=== PATIENT | male | born 1955 | race African-American/Black ===

== ENCOUNTER 2016-12-25 02:17 | Emergency (ER) | payer MEDICAID ==
[~2016-12-25] VITALS: Ht 167.6 cm; Wt 63.5 kg
[2016-12-25] MEDS ORDERED: NKM (02:27)
[2016-12-25 02:30] VITALS: BP 143/81
--- NOTE | 2016-12-25 02:42 | Emergency Room Report ---
History of Present Illness General Chief Complaint: Pain Source: Patient Present Illness [facility] This is a 61-year-old male with a history hypertension. Has not take any medication for it though. He presents with chief complaint of right leg pain. Onset for 2 days. Pain going from his back down his leg. Denies any fever chills denies any nausea vomiting. He does have increasing edema to his lower extremity. Nothing made it better nothing made it worse. No other complaint Allergies: Coded Allergies: No Known Allergies (Unverified , 12/25/16) Patient History Past Medical History: see triage record, old chart reviewed, HTN Past Surgical History: other Pertinent Family History: none Social History: Reports: smoking Immunizations: other Reviewed Nursing Documentation: PMH: Agreed, PSxH: Agreed Nursing Documentation-PMH Hx Hypertension: Yes Review of Systems Eye: Denies: blurred vision, eye pain ENT: Denies: ear pain, nose congestion, throat swelling Respiratory: Denies: cough, shortness of breath Cardiovascular: Denies: chest pain, palpitations Gastrointestinal: Denies: abdominal pain, diarrhea, nausea, vomiting Musculoskeletal: Denies: back pain, joint pain Skin: Denies: rash Neurological: Denies: headache, numbness Endocrine: Denies: increased thirst, increased urine Hematologic/Lymphatic: Denies: easy bruising All Other Systems: negative except mentioned in HPI Physical Exam Vital Signs Date Time Temp Pulse Resp B/P Pulse Ox O2 Delivery O2 Flow Rate FiO2 12/25/16 02:20 98.2 99 18 148/80 96 Room Air vitals unremarkable Sp02 EP Interpretation: reviewed, normal General Appearance: well appearing, no apparent distress, alert Head: normocephalic, atraumatic Eyes: bilateral eye EOMI, bilateral eye PERRL ENT: hearing grossly normal, normal pharynx Neck: full range of motion, supple, no meningismus Respiratory: chest non-tender, lungs clear, normal breath sounds Cardiovascular #1: regular rate, rhythm, no murmur Gastrointestinal: normal bowel sounds, non tender, no mass, no organomegaly, no bruit, non-distended, other - ventral hernia. reducible. Musculoskeletal: gait/station normal, normal range of motion, swelling - 2+ pitting edema bilaterally, other - Patient with severe scoliosis. Neurologic: alert, oriented x3 Psychiatric: mood/affect normal Skin: warm/dry Medical Decision Making Diagnostic Impression: Primary Impression: Low back pain Qualified Codes: M54.41 - Lumbago with sciatica, right side Additional Impression: Polysubstance abuse ER Course Patient complaining of back pain. His bending over to tie his shoe any difficulty. I see no evidence of an epidural abscess, fracture or neoplastic process. He has chronic lower extremity edema. No evidence of CHF. No evidence of DVT. We'll discharge home. Lab Results Impression labs unremarkable EKG Diagnostic Results Rate: normal Rhythm: NSR ST Segments: no acute changes Rhythm Strip Diag. Results EP Interpretation: yes Rate: 88 Rhythm: NSR, no PVC's, no ectopy Chest X-Ray Diagnostic Results EP Interpretation: Yes Findings: no consolidation, no effusion, no pneumothorax, no acute cardiopulmonary disease Number of Views: 1 Last Vital Signs Date Time Temp Pulse Resp B/P Pulse Ox O2 Delivery O2 Flow Rate FiO2 12/25/16 02:20 98.2 99 18 148/80 96 Room Air Status: improved Disposition: HOME, SELF-CARE Condition: Stable Scripts Ibuprofen* (MOTRIN*) 600 Mg Tablet 600 MG ORAL THREE TIMES A DAY, #30 TAB 0 Refills Prov: BAYRON MONTENEGRO M.D. 12/25/16 Patient Instructions: Chronic Pain Additional Instructions: Followup With your DrEddie in 7 days. Stop using drugs. Return if worse. Take your medication. BAYRON MONTENEGRO M.D. Dec 25, 2016 02:42
[2016-12-25] MEDS ORDERED: Norco 5mg/325mg tab ORAL ONE (02:45)
[2016-12-25 03:20] LABS: EOSINOPHILS % (AUTO) 1.5 % (0.0-3.0); LYMPHOCYTES % (AUTO) 17.1 % (20.0-45.0); MEAN CORPUSCULAR HEMOGLOBIN 28.2 PG (27.0-31.0); MEAN CORPUSCULAR HGB CONC 32.4 G/DL (32.0-36.0); MEAN CORPUSCULAR VOLUME 87 FL (80-99); MEAN PLATELET VOLUME 4.5 FL (6.5-10.1); MONOCYTES % (AUTO) 9.8 % (1.0-10.0); NEUTROPHILS % (AUTO) 68.7 % (45.0-75.0); PLATELET COUNT 544 K/UL (150-450); RED BLOOD COUNT 4.04 M/UL (4.70-6.10); RED CELL DISTRIBUTION WIDTH 15.5 % (11.6-14.8); WHITE BLOOD COUNT 6.1 K/UL (4.8-10.8)
[2016-12-25 03:21] LABS: APPEARANCE,URINE CLEAR; KETONES,URINE NEGATIVE (NEGATIVE); LEUKOCYTE ESTERASE ,URINE NEGATIVE (NEGATIVE); NITRITE,URINE NEGATIVE (NEGATIVE); PH,URINE 6 (4.5-8.0); PROTEIN,URINE NEGATIVE (NEGATIVE); UROBILINOGEN,URINE NORMAL MG/DL (0.0-1.0)
[2016-12-25 03:56] LABS: ALANINE AMINOTRANSFERASE 39 U/L (3-41); ANION GAP 11 (5-15); ASPARTATE AMINO TRANSFERASE 37 U/L (5-40); CALCIUM 8.9 mg/dL (8.6-10.2); CARBON DIOXIDE 26 mEQ/L (20-30); CHLORIDE 99 mEQ/L (98-107); CREATININE 0.8 mg/dL (0.7-1.2); GLOMERULAR FILTRATION RATE > 60 mL/min (>60); HEMOLYSIS 0; POTASSIUM 4.4 mEQ/L (3.4-4.9); SODIUM 136 mEQ/L (135-145); TOTAL PROTEIN 6.8 g/dL (6.6-8.7)
[2016-12-25] MEDS ORDERED: IBUPROFEN600 MG ORAL (04:39)
[2016-12-25 04:45] LABS: TROPONIN I < 0.30 ng/mL (<=0.30)
[2016-12-25 04:46] VITALS: BP 134/75
[2016-12-25 05:07] VITALS: BP 134/75
--- NOTE | 2016-12-25 15:09 | Diagnostic Imaging Report ---
Indication: SOB Technique: One of the chest Comparison: none Findings: There is some increased opacity of the left lateral lung base, could represent some focal patchy infiltrate. The remainder of the lungs and pleural spaces are clear. Heart size is normal. Aorta is tortuous. Impression: Left lateral basilar opacity, infiltrate not excludable. Correlate with clinical findings
--- NOTE | 2016-12-25 15:35 | Cardiology Report ---
APPROVED REPORT EKG Measurement Heart [id number] NM [id number] Normal sinus rhythm Normal ECG
== END 2016-12-25 05:10 | disposition home or self-care (01) ==
LOC: EMR 02:37
DX: M54.41 Lumbago with sciatica, right side (principal); F19.10 Other psychoactive substance abuse, uncomplicated; M79.604 Pain in right leg; F17.200 Nicotine dependence, unspecified, uncomplicated; I10 Essential (primary) hypertension
CPT/HCPCS: 36415; 71010; 80053; 80300; 81003; 82550; 82553; 83880; 84484; 85025; 93005; 99283

== ENCOUNTER 2017-02-12 14:52 | Inpatient (IN) | payer MEDICAID, OTHER ==
[~2017-02-12] VITALS: Ht 167.6 cm; Wt 68.0 kg
[~2017-02-12 14:52] MED LIST: IBUPROFEN600 MG ORAL; NKM
[2017-02-12] MEDS ORDERED: Morphine Sulfate 4mg/ml Inj IVP ONE (15:45)
[2017-02-12 15:52] LABS: BASOPHILS % (AUTO) 1.6 % (0.0-2.0); EOSINOPHILS % (AUTO) 0.8 % (0.0-3.0); LYMPHOCYTES % (AUTO) 8.9 % (20.0-45.0); MEAN CORPUSCULAR HEMOGLOBIN 27.2 PG (27.0-31.0); MEAN CORPUSCULAR HGB CONC 32.7 G/DL (32.0-36.0); MEAN CORPUSCULAR VOLUME 83 FL (80-99); MEAN PLATELET VOLUME 4.3 FL (6.5-10.1); MONOCYTES % (AUTO) 5.7 % (1.0-10.0); NEUTROPHILS % (AUTO) 83.1 % (45.0-75.0); PLATELET COUNT 539 K/UL (150-450); RED BLOOD COUNT 4.51 M/UL (4.70-6.10); RED CELL DISTRIBUTION WIDTH 13.6 % (11.6-14.8)
[2017-02-12 16:10] LABS: INR 1.1 (0.9-1.1); PROTHROMBIN TIME 10.9 SEC (9.30-11.50); TROPONIN I < 0.30 ng/mL (<=0.30)
[2017-02-12 16:25] LABS: ALANINE AMINOTRANSFERASE 42 U/L (3-41); ALBUMIN/GLOBULIN RATIO 0.8 (1.0-2.7); ANION GAP 19 (5-15); ASPARTATE AMINO TRANSFERASE 43 U/L (5-40); CALCIUM 9.1 mg/dL (8.6-10.2); CARBON DIOXIDE 25 mEQ/L (20-30); CHLORIDE 92 mEQ/L (98-107); CREATININE 0.9 mg/dL (0.7-1.2); GLOMERULAR FILTRATION RATE > 60 mL/min (>60); HEMOLYSIS 7; LIPASE 13 U/L (< 60); POTASSIUM 3.7 mEQ/L (3.4-4.9); SODIUM 136 mEQ/L (135-145); TOTAL PROTEIN 7.7 g/dL (6.6-8.7)
[2017-02-12 17:58] VITALS: BP 158/84
--- NOTE | 2017-02-12 18:13 | Emergency Room Report ---
History of Present Illness General Chief Complaint: Chest Pain Source: Patient, Medical Record Present Illness HPI Patient presents with complaints of Mid abdominal pain Patient is an extremity poor historian Reports of the pain has been ongoing for the past several days He has had increased vomiting Vomited several times today Denies any diarrhea He does report passing gas Initiated was a report of chest pain however the patient has mainly epigastric and mid abdominal pain On further evaluation patient has a large hernia Allergies: Coded Allergies: No Known Allergies (Unverified , 12/25/16) Patient History Past Medical History: see triage record Pertinent Family History: none Reviewed Nursing Documentation: PMH: Agreed, PSxH: Agreed Nursing Documentation-PMH Past Medical History: No History, Except For Hx Hypertension: Yes Review of Systems All Other Systems: negative except mentioned in HPI Physical Exam Vital Signs Date Time Temp Pulse Resp B/P Pulse Ox O2 Delivery O2 Flow Rate FiO2 02/12/17 14:58 97.9 87 20 170/91 97 02/12/17 17:58 Room Air Sp02 EP Interpretation: reviewed, normal General Appearance: mild distress - Appears nauseated vomiting Head: normocephalic, atraumatic Eyes: bilateral eye EOMI, bilateral eye PERRL ENT: other - Patient has edema involving the facial region questionable appearance of angioedema however the patient states that that is his normal look , Neck: supple, thyroid normal Respiratory: lungs clear, normal breath sounds Cardiovascular #1: regular rate, rhythm, no edema Gastrointestinal: other - Patient has a mid ventral abdominal hernia, and not able to reduce his hernia easily is concerning for an incarcerated hernia, Genitourinary: no CVA tenderness Musculoskeletal: normal inspection, back normal Neurologic: alert, responsive - However is having a difficult time putting full history, unknown underlying medical condition Skin: normal color, no rash Lymphatic: no adenopathy Medical Decision Making Diagnostic Impression: Primary Impression: Incarcerated hernia Additional Impressions: Heroin abuse Vomiting ER Course Given the patient's abdominal exam Incarcerated versus regulated hernia is considered patient's also contacted is at the hospital she the patient has a heroin addiction At this time 2 different attempts were made at reducing the hernia however is a patient coughs the hernia again easily protrudes through the abdominal wall At this time appears to be soft on palpation on initial evaluation however CAT scan imaging shows the hernia and clinical evaluation is required Patient's blood work is at baseline levels Lactic acid which is very minimally elevated reducing the likelihood of ischemic bowel Patient admitted General surgery at bedside Labs Test 02/12/17 15:30 02/12/17 18:14 02/12/17 21:36 02/13/17 00:30 White Blood Count 9.0 K/UL (4.8-10.8) Red Blood Count 4.51 M/UL (4.70-6.10) Hemoglobin 12.3 G/DL (14.2-18.0) Hematocrit 37.5 % (42.0-52.0) Mean Corpuscular Volume 83 FL (80-99) Mean Corpuscular Hemoglobin 27.2 PG (27.0-31.0) Mean Corpuscular Hemoglobin Concent 32.7 G/DL (32.0-36.0) Red Cell Distribution Width 13.6 % (11.6-14.8) Platelet Count 539 K/UL (150-450) Mean Platelet Volume 4.3 FL (6.5-10.1) Neutrophils (%) (Auto) 83.1 % (45.0-75.0) Lymphocytes (%) (Auto) 8.9 % (20.0-45.0) Monocytes (%) (Auto) 5.7 % (1.0-10.0) Eosinophils (%) (Auto) 0.8 % (0.0-3.0) Basophils (%) (Auto) 1.6 % (0.0-2.0) Prothrombin Time 10.9 SEC (9.30-11.50) Prothromb Time International Ratio 1.1 (0.9-1.1) Activated Partial Thromboplast Time 35 SEC (23-33) Sodium Level 136 mEQ/L (135-145) Potassium Level 3.7 mEQ/L (3.4-4.9) Chloride Level 92 mEQ/L (98-107) Carbon Dioxide Level 25 mEQ/L (20-30) Anion Gap 19 (5-15) Blood Urea Nitrogen 9 mg/dL (7-23) Creatinine 0.9 mg/dL (0.7-1.2) Estimat Glomerular Filtration Rate > 60 mL/min (>60) Glucose Level 105 mg/dL (74-106) Calcium Level 9.1 mg/dL (8.6-10.2) Total Bilirubin 0.3 mg/dL (0.0-1.2) Aspartate Amino Transf (AST/SGOT) 43 U/L (5-40) Alanine Aminotransferase (ALT/SGPT) 42 U/L (3-41) Alkaline Phosphatase 60 U/L (40-129) Total Creatine Kinase 111 U/L (38-174) Creatine Kinase MB 3.0 ng/mL (< 6.7) Creatine Kinase MB Relative Index 2.7 Troponin I < 0.30 ng/mL (<=0.30) Pro-B-Type Natriuretic Peptide 205 pg/mL (0-125) Total Protein 7.7 g/dL (6.6-8.7) Albumin 3.5 g/dL (3.5-5.2) Globulin 4.2 g/dL Albumin/Globulin Ratio 0.8 (1.0-2.7) Lipase 13 U/L (< 60) Urine Color Pale yellow Urine Appearance Clear Urine pH 8 (4.5-8.0) Urine Specific [place] 1.010 (1.005-1.035) Urine Protein Negative (NEGATIVE) Urine Glucose (UA) Negative (NEGATIVE) Urine Ketones Negative (NEGATIVE) Urine Occult Blood Negative (NEGATIVE) Urine Nitrite Negative (NEGATIVE) Urine Bilirubin Negative (NEGATIVE) Urine Urobilinogen Normal MG/DL (0.0-1.0) Urine Leukocyte Esterase Negative (NEGATIVE) Lactic Acid Level 2.70 mmol/L (0.66-2.22) 2.40 mmol/L (0.66-2.22) Test 02/13/17 10:35 White Blood Count 9.2 K/UL (4.8-10.8) Red Blood Count 4.71 M/UL (4.70-6.10) Hemoglobin 12.5 G/DL (14.2-18.0) Hematocrit 39.6 % (42.0-52.0) Mean Corpuscular Volume 84 FL (80-99) Mean Corpuscular Hemoglobin 26.6 PG (27.0-31.0) Mean Corpuscular Hemoglobin Concent 31.7 G/DL (32.0-36.0) Red Cell Distribution Width 13.5 % (11.6-14.8) Platelet Count 567 K/UL (150-450) Mean Platelet Volume 4.3 FL (6.5-10.1) Neutrophils (%) (Auto) % (45.0-75.0) Lymphocytes (%) (Auto) % (20.0-45.0) Monocytes (%) (Auto) % (1.0-10.0) Eosinophils (%) (Auto) % (0.0-3.0) Basophils (%) (Auto) % (0.0-2.0) Differential Total Cells Counted 100 Neutrophils % (Manual) 87 % (45-75) Lymphocytes % (Manual) 8 % (20-45) Monocytes % (Manual) 5 % (1-10) Eosinophils % (Manual) 0 % (0-3) Basophils % (Manual) 0 % (0-2) Band Neutrophils 0 % (0-8) Platelet Estimate Increased Platelet Morphology Normal Hypochromasia 1+ Activated Partial Thromboplast Time 36 SEC (23-33) Sodium Level 137 mEQ/L (135-145) Potassium Level 4.3 mEQ/L (3.4-4.9) Chloride Level 96 mEQ/L (98-107) Carbon Dioxide Level 27 mEQ/L (20-30) Anion Gap 14 (5-15) Blood Urea Nitrogen 7 mg/dL (7-23) Creatinine 0.8 mg/dL (0.7-1.2) Estimat Glomerular Filtration Rate > 60 mL/min (>60) Glucose Level 113 mg/dL (74-106) Calcium Level 9.0 mg/dL (8.6-10.2) Total Bilirubin 0.3 mg/dL (0.0-1.2) Aspartate Amino Transf (AST/SGOT) 37 U/L (5-40) Alanine Aminotransferase (ALT/SGPT) 36 U/L (3-41) Alkaline Phosphatase 59 U/L (40-129) Total Protein 7.9 g/dL (6.6-8.7) Albumin 3.6 g/dL (3.5-5.2) Globulin 4.3 g/dL Albumin/Globulin Ratio 0.8 (1.0-2.7) Amylase Level 96 U/L (10-110) Lipase 15 U/L (< 60) Rhythm Strip Diag. Results EP Interpretation: yes Rate: 77 Rhythm: NSR, no PVC's, no ectopy Chest X-Ray Diagnostic Results EP Interpretation: Yes Findings: no consolidation, no effusion, no pneumothorax Number of Views: 1 CT/MRI/US Diagnostic Results CT/MRI/US Diagnostic Results : Impression CT abdomen pelvis:Impression: Unusual upper abdominal wall ventral hernia, into which protrudes the anterior wall of the gastric antrum and a small amount of fluid Evidence of prior cecal resection Edema of the mesenteric fat and trace intraperitoneal fluid Dilated common bile duct without evidence of downstream obstructive lesion.. Nonetheless, obstruction not excludable, and correlation with liver function tests is recommended Nonobstructing left lower pole renal calculus Right renal cyst. Subcentimeter low-attenuation left renal lesion, too small to characterize, most likely benign a cortical cyst. No further followup necessary Subcentimeter low-attenuation left hepatic lobe lesion, too small to characterize, most likely benign simple cysts or bile hamartomas. No further followup necessary Other findings as noted, including degenerative spondylosis, scoliosis, basilar pulmonary parenchymal atelectatic changes This agrees with the preliminary interpretation provided overnight by Dr. Buchanan Last Vital Signs Date Time Temp Pulse Resp B/P Pulse Ox O2 Delivery O2 Flow Rate FiO2 02/12/17 17:59 88 20 Room Air 02/12/17 17:58 97.9 158/84 98 Status: improved Disposition: ADMITTED INPATIENT Condition: Critical Referrals: [facility],REFERRING (PCP) ANGIE OROZCO D.O. Feb 12, 2017 18:13
[2017-02-12 18:46] LABS: APPEARANCE,URINE CLEAR; KETONES,URINE NEGATIVE (NEGATIVE); LEUKOCYTE ESTERASE ,URINE NEGATIVE (NEGATIVE); NITRITE,URINE NEGATIVE (NEGATIVE); PH,URINE 8 (4.5-8.0); PROTEIN,URINE NEGATIVE (NEGATIVE); UROBILINOGEN,URINE NORMAL MG/DL (0.0-1.0)
[2017-02-12 19:30] VITALS: BP 150/80
[2017-02-12] MEDS ORDERED: Metoclopramide 10mg/2ml Inj IVP ONE (19:30)
[2017-02-12] MEDS ORDERED: Nitroglycerin Subl 0.4mg tab (Bottle Of 25) SL PRN (19:45)
[2017-02-12] MEDS ORDERED: Mylanta II UD 30ml ORAL PRN (20:00)
[2017-02-12] MEDS ORDERED: Miralax 17gm pkt ORAL PRN (21:00)
[2017-02-12 21:06] VITALS: BP 151/78
[2017-02-12] MEDS: Heparin 5000 units/ml inj SUBQ SCH (21:24)
[2017-02-12] MEDS: D5 1/2NS 1,000 ML IV SCH (21:24)
[2017-02-12 22:04] LABS: REFLEX LACTIC ACID YES OR NO YES
[2017-02-12 23:30] VITALS: BP 158/94
[2017-02-13] VITALS (15 sets, daily range): BP systolic 123–165; BP diastolic 74–105
--- NOTE | 2017-02-13 00:48 | Consultation ---
DATE OF CONSULTATION: 02/12/2017 CONSULTING PHYSICIAN: Dilan Anderson M.D. ATTENDING PHYSICIAN: Jose Null D.O. REASON FOR CONSULTATION: Abdominal pain, epigastric hernia. HISTORY OF PRESENT ILLNESS: This 61-year-old male, heroin addict, who presented with complaints of midabdominal pain. The patient is a poor historian. Information was gathered from the patient's . The patient apparently has had an epigastric hernia for 2 years. He developed problems with nausea and vomiting causing protrusion of the hernia. There is no history of fever or chills. PAST MEDICAL HISTORY: Previous surgery includes a right inguinal hernia repair allegedly 3 months ago. ALLERGIES: None known. MEDICATIONS: Ibuprofen 600 mg three times a day. The patient allegedly has some hypertension, but is not currently on medications. He has used heroin since he was a teenager. SOCIAL HISTORY: Tobacco, none. Alcohol, none. FAMILY HISTORY: REVIEW OF SYSTEMS: Negative except for complaints in history of present illness. PHYSICAL EXAMINATION: GENERAL: Reveals a slender male who was somewhat stuporous and not a good historian. HEENT: Normocephalic. Pupils are equal and reactive to light. There was no scleral icterus. NECK: Supple without adenopathy. LUNGS: Clear. HEART: Showed a regular rhythm. ABDOMEN: Soft. There is a prominent bulge in the epigastric region. The mass is partially reducible. Manipulation of the area provokes vomiting of saliva. There is a healed low midline scar. EXTREMITIES: Showed no edema. There are multiple skin nodules on both arms consistent with skin popping. LABORATORY STUDIES: CBC showed a white blood count of 9000, hemoglobin 12.3 g%, hematocrit 37.5%, and platelet count 539,000. Clinical chemistry showed a sodium of 136, potassium 3.7, chloride 92, bicarbonate 25, BUN 9, creatinine 0.9, and glucose 105. Liver panel showed a total bilirubin of 0.3, SGOT slightly elevated to 42, SGPT slightly elevated to 43, alkaline phosphatase normal at 60, and lipase normal at 13. A CT scan of the abdomen without contrast revealed an epigastric hernia, possibly containing some gastric portion of the stomach with mural thickening. There was no ascites. IMPRESSION: 1. Epigastric hernia, partially reducible. 2. Intravenous drug abuse. 3. Essential hypertension. PLAN: The patient will be admitted. We will keep him NPO and give him IV hydration. We will obtain an abdominal series tomorrow morning. Dilan Anderson M.D. DR: ROGELIO JOB#: [id number] CC:
[2017-02-13] MEDS: D5 1/2NS 1,000 ML IV SCH ×2 (03:26→18:31)
[2017-02-13] MEDS: Morphine Sulfate 2mg/ml Inj IVP PRN ×2 (06:43→21:11)
[2017-02-13] MEDS: Heparin 5000 units/ml inj SUBQ SCH ×2 (09:02→21:13)
--- NOTE | 2017-02-13 09:53 | Diagnostic Imaging Report ---
Clinical Indication: Abdominal pain Technique: No oral contrast utilized, per emergency room physician request IV administration nonionic contrast. Venous phase spiral acquisition obtained through the abdomen and pelvis. Multiplanar reconstructions were generated. Total dose length product 595 mGycm. CTDIvol(s) 12 mGy Comparison: None Findings: There is an unusual ventral hernia, into which protrudes the anterior wall of the gastric antrum. There is a small amount of fluid within the hernia sac as well. The distal esophagus, remainder the of stomach, and duodenum are unremarkable. There is generalized edema of the mesenteric and retroperitoneal fat, as well as trace free intraperitoneal fluid. No small bowel distention. There is evidence of prior resection of cecum and ascending colon and is associated ileocolostomy, associated absence of the appendix. No evidence of diverticulosis or diverticulitis. The liver demonstrates a subcentimeter low-attenuation lesion in segment 4B, too small to characterize, most likely benign simple cysts or bile hamartomas. The gallbladder is unremarkable. The common bile duct is mildly dilated, measuring 9 mm diameter. No downstream obstructing lesion is evident. The pancreas, spleen, adrenals are unremarkable. The right kidney demonstrates a cyst in the lower pole. The left kidney demonstrates a 4 mm calculus in the lower pole collecting system. It also demonstrates an upper pole subcentimeter low-attenuation lesion which is too small characterize. No pelvic mass or adenopathy. No retroperitoneal or mesenteric mass or adenopathy. The included lung bases demonstrate some atelectatic changes. There is mild lumbar scoliotic deformity. There are degenerative changes of the discs. Impression: Unusual upper abdominal wall ventral hernia, into which protrudes the anterior wall of the gastric antrum and a small amount of fluid Evidence of prior cecal resection Edema of the mesenteric fat and trace intraperitoneal fluid Dilated common bile duct without evidence of downstream obstructive lesion.. Nonetheless, obstruction not excludable, and correlation with liver function tests is recommended Nonobstructing left lower pole renal calculus Right renal cyst. Subcentimeter low-attenuation left renal lesion, too small to characterize, most likely benign a cortical cyst. No further followup necessary Subcentimeter low-attenuation left hepatic lobe lesion, too small to characterize, most likely benign simple cysts or bile hamartomas. No further followup necessary Other findings as noted, including degenerative spondylosis, scoliosis, basilar pulmonary parenchymal atelectatic changes This agrees with the preliminary interpretation provided overnight by Dr. Buchanan The CT scanner at [facility] is accredited by the [employer] and the scans are performed using protocols designed to limit radiation exposure to as low as reasonably achievable to attain images of sufficient resolution adequate for diagnostic evaluation.
--- NOTE | 2017-02-13 10:23 | General Surgery Progress Note ---
General Surgery-Progress Note Subjective Symptoms: pain same Additional Comments Patient seen and examined at bedside. Patient states that two days ago he began to have acute epigastric abdominal pain and noted a lump on his epigastric region. This caused him pain, discomfort, nausea and emesis. He has had intermittent non bloody non bilious emesis since onset. He presented to ED dehydrated with partial reducible epigastric ventral hernia. He was admitted for fluid resuscitation and operative planning. When seen at bedside this morning he states that he still has intermittent nausea and emesis. When his hernia is reduced he feels slightly better but after Valsalva or coughing abdominal contents easily enter the hernia again and cause a hard buldge in the epigastric region that causes pain. I was able to reduce the hernia again this morning but it will not stay reduced and abdominal contents return soon after reduction. He states he is still passing flatus and has BM's. otherwise well. Objective Last 24 Hour Vital Signs Date Time Temp Pulse Resp B/P Pulse Ox O2 Delivery O2 Flow Rate FiO2 02/13/17 08:00 99.3 89 20 143/79 99 Room Air 02/13/17 04:00 98.1 62 18 155/95 96 Room Air 02/13/17 02:14 99.0 62 20 149/81 98 Room Air 02/13/17 01:57 99.0 62 20 149/81 98 Room Air 02/12/17 23:30 99.0 65 20 158/94 98 Room Air 02/12/17 21:06 97.9 62 20 151/78 98 Room Air 02/12/17 19:30 97.9 86 20 150/80 98 Room Air 02/12/17 17:59 88 20 Room Air 02/12/17 17:58 97.9 88 16 158/84 98 Room Air 02/12/17 16:27 97.9 02/12/17 14:58 97.9 87 20 170/91 97 I&O Intake and Output 02/12/17 02/13/17 19:00 07:00 Intake Total 1042.5 ml Output Total 200 ml 600 ml Balance -200 ml 442.5 ml Intake IV Total 1042.5 ml Output Urine Total 500 ml Emesis 200 ml 100 ml # Voids 1 Cardiovascular: RSR Respiratory: clear Abdomen: soft, tenderness, present bowel sounds, other - soft, tender in epigastric region, reducible epigastric hernia with 2-3cm defect noted, prior midline lower scar well healed, non distended. Extremities: no edema, no tenderness Laboratory Tests Test 02/12/17 15:30 02/12/17 18:14 02/12/17 21:36 02/13/17 00:30 White Blood Count 9.0 K/UL (4.8-10.8) Red Blood Count 4.51 M/UL (4.70-6.10) L Hemoglobin 12.3 G/DL (14.2-18.0) L Hematocrit 37.5 % (42.0-52.0) L Mean Corpuscular Volume 83 FL (80-99) Mean Corpuscular Hemoglobin 27.2 PG (27.0-31.0) Mean Corpuscular Hemoglobin Concent 32.7 G/DL (32.0-36.0) Red Cell Distribution Width 13.6 % (11.6-14.8) Platelet Count 539 K/UL (150-450) H Mean Platelet Volume 4.3 FL (6.5-10.1) L Neutrophils (%) (Auto) 83.1 % (45.0-75.0) H Lymphocytes (%) (Auto) 8.9 % (20.0-45.0) L Monocytes (%) (Auto) 5.7 % (1.0-10.0) Eosinophils (%) (Auto) 0.8 % (0.0-3.0) Basophils (%) (Auto) 1.6 % (0.0-2.0) Prothrombin Time 10.9 SEC (9.30-11.50) Prothromb Time International Ratio 1.1 (0.9-1.1) Activated Partial Thromboplast Time 35 SEC (23-33) H Sodium Level 136 mEQ/L (135-145) Potassium Level 3.7 mEQ/L (3.4-4.9) Chloride Level 92 mEQ/L (98-107) L Carbon Dioxide Level 25 mEQ/L (20-30) Anion Gap 19 (5-15) H Blood Urea Nitrogen 9 mg/dL (7-23) Creatinine 0.9 mg/dL (0.7-1.2) Estimat Glomerular Filtration Rate > 60 mL/min (>60) Glucose Level 105 mg/dL (74-106) Calcium Level 9.1 mg/dL (8.6-10.2) Total Bilirubin 0.3 mg/dL (0.0-1.2) Aspartate Amino Transf (AST/SGOT) 43 U/L (5-40) H Alanine Aminotransferase (ALT/SGPT) 42 U/L (3-41) H Alkaline Phosphatase 60 U/L (40-129) Total Creatine Kinase 111 U/L (38-174) Creatine Kinase MB 3.0 ng/mL (< 6.7) Creatine Kinase MB Relative Index 2.7 Troponin I < 0.30 ng/mL (<=0.30) Pro-B-Type Natriuretic Peptide 205 pg/mL (0-125) H Total Protein 7.7 g/dL (6.6-8.7) Albumin 3.5 g/dL (3.5-5.2) Globulin 4.2 g/dL Albumin/Globulin Ratio 0.8 (1.0-2.7) L Lipase 13 U/L (< 60) Urine Color Pale yellow Urine Appearance Clear Urine pH 8 (4.5-8.0) Urine Specific [place] 1.010 (1.005-1.035) Urine Protein Negative (NEGATIVE) Urine Glucose (UA) Negative (NEGATIVE) Urine Ketones Negative (NEGATIVE) Urine Occult Blood Negative (NEGATIVE) Urine Nitrite Negative (NEGATIVE) Urine Bilirubin Negative (NEGATIVE) Urine Urobilinogen Normal MG/DL (0.0-1.0) Urine Leukocyte Esterase Negative (NEGATIVE) Lactic Acid Level 2.70 mmol/L (0.66-2.22) H 2.40 mmol/L (0.66-2.22) H Plan Additional Comments A/P: 61 M epigastric ventral hernia. Reducible but contents easily return and can sometimes become difficult to reduce. High risk for incarceration. CT scan reviewed and stomach antrum with fat noted in hernia sac. patient continues to have pain, nausea, emesis. Needs repair of epigastric ventral hernia. exam findings concerning for impending incarceration. Risks, benefits, and alternatives to surgery discussed with patient in detail. He expresses understanding and consents to surgery. will proceed to OR today for repair of ventral epigastric hernia with mesh. all questions answered NPO with IV fluids Pre op Jagdish Vogt Feb 13, 2017 10:23
--- NOTE | 2017-02-13 10:28 | Pre-Procedure Note/Attestation ---
Pre-Procedure Note/Attestation Complete Prior to Procedure Planned Procedure: not applicable Procedure Narrative: repair of incarcerated ventral epigastric hernia with mesh, possible bowel resection, possible laparotomy Attestation I attest that I discussed the nature of the procedure; its benefits; risks and complications; and alternatives (and the risks and benefits of such alternatives ), prior to the procedure, with the patient (or the patient's legal players club representative). I attest that, if there was a reasonable possibility of needing a blood transfusion, the patient (or the patient's legal players club representative) was given the [facility] standardized written summary, pursuant to the [place] Blood Safety Act ([place] Health and Safety Code # 1645, as amended). I attest that I re-evaluated the patient just prior to the surgery and that there has been no change in the patient's H&P, except as documented below: Jagdish Sierra Feb 13, 2017 10:28
[2017-02-13] MEDS: Pantoprazole Inj IVP SCH (11:00)
[2017-02-13] MEDS ORDERED: Propofol 10mg/ml 20ml IV ONE ×2 (11:02→11:30)
[2017-02-13] MEDS ORDERED: Bacitracin 50000 Units Vial ONE (11:02)
[2017-02-13] MEDS ORDERED: Bupivacaine w/Epi 0.25% 30ml Vial INJ ONE (11:03)
[2017-02-13 11:19] LABS: MEAN CORPUSCULAR HEMOGLOBIN 26.6 PG (27.0-31.0); MEAN CORPUSCULAR HGB CONC 31.7 G/DL (32.0-36.0); MEAN CORPUSCULAR VOLUME 84 FL (80-99); MEAN PLATELET VOLUME 4.3 FL (6.5-10.1); PLATELET COUNT 567 K/UL (150-450); RED BLOOD COUNT 4.71 M/UL (4.70-6.10); RED CELL DISTRIBUTION WIDTH 13.5 % (11.6-14.8); WHITE BLOOD COUNT 9.2 K/UL (4.8-10.8)
[2017-02-13] MEDS ORDERED: Ketorolac 30mg Inj ONE (11:30)
[2017-02-13] MEDS ORDERED: Sterile Water Irrig 1000ml IRRIG ONE (11:30)
[2017-02-13] MEDS ORDERED: LR 1000ml ONE (11:30)
[2017-02-13] MEDS ORDERED: NS Irrig 1000ml ONE (11:30)
[2017-02-13] MEDS ORDERED: Midazolam 2mg/2ml Inj ONE (11:30)
[2017-02-13] MEDS ORDERED: Succinylcholine 20mg/ml 10ml vial ONE (11:30)
[2017-02-13] MEDS ORDERED: fentaNYL 100 mcg/2 mL IV ONE (11:30)
[2017-02-13] MEDS ORDERED: Zemuron 50mg/5ml Inj IV ONE (11:30)
[2017-02-13] MEDS ORDERED: NS Irrig 1000ml IRRIG ONE (11:31)
[2017-02-13 11:39] LABS: ALANINE AMINOTRANSFERASE 36 U/L (3-41); ALBUMIN/GLOBULIN RATIO 0.8 (1.0-2.7); AMYLASE 96 U/L (10-110); ANION GAP 14 (5-15); ASPARTATE AMINO TRANSFERASE 37 U/L (5-40); CARBON DIOXIDE 27 mEQ/L (20-30); CHLORIDE 96 mEQ/L (98-107); CREATININE 0.8 mg/dL (0.7-1.2); GLOMERULAR FILTRATION RATE > 60 mL/min (>60); HEMOLYSIS 0; LIPASE 15 U/L (< 60); POTASSIUM 4.3 mEQ/L (3.4-4.9); SODIUM 137 mEQ/L (135-145); TOTAL PROTEIN 7.9 g/dL (6.6-8.7)
[2017-02-13 11:58] LABS: BAND NEUTROPHILS % (MANUAL) 0 % (0-8); BASOPHILS % (MANUAL) 0 % (0-2); EOSINOPHILS % (MANUAL) 0 % (0-3); HYPOCHROMASIA 1+; LYMPHOCYTES % (MANUAL) 8 % (20-45); NEUTROPHILS % (MANUAL) 87 % (45-75); PLATELET ESTIMATE INCREASED; PLATELET MORPHOLOGY NORMAL; TOTAL CELLS COUNTED 100
[2017-02-13] MEDS ORDERED: LR 1000ml 1,000 ML IVLG SCH (12:28)
--- NOTE | 2017-02-13 12:28 | Anethesia Preoperative Eval ---
Anesthesia Pre-op PMH/ROS General Date of Evaluation: Feb 13, 2017 Time of Evaluation: 11:15 Anesthesiologist: Alona ASA Score: ASA 3 Mallampati Score Class I : Soft palate, uvula, fauces, pillars visible Class II: Soft palate, uvula, fauces visible Class III: Soft palate, base of uvula visible Class IV: Only hard plate visible Mallampati Classification: Class II Surgeon: Derek Diagnosis: Incarcerated ventral hernia Surgical Procedure: Incarcerated ventral hernia repair Anesthesia History: none Social History: current smoker, drug use - IVDA Allergies: Coded Allergies: No Known Allergies (Unverified , 12/25/16) Medications: see eMAR Past Medical History Cardiovascular: Reports: HTN, Denies: CAD, NE, arrhythmia, other, valve dz Pulmonary: Denies: COPD, NOR[place], asthma, other Gastrointestinal/Genitourinary: Reports: GERD, Denies: CRI, ESRD, other Neurologic/Psychiatric: Reports: depression/anxiety, Denies: CVA, TIA, dementia, other Endocrine: Denies: DM, hypothyroidism, other, steroids HEENT: Denies: [place] (L), [place] (R), cataract (L), cataract (R), glaucoma, other Hematology/Immune: Denies: DVT, anemia, bleeding disorder, other Musculoskeletal/Integumentary: Reports: DJD, Denies: DDD, OA, RA, edema, other Other: other - malnourished PMH Narrative: admitted for acute abdominal pain nausea vomiting possible bowel obstruction PSxH Narrative: Ex laparotomy. Anesthesia Pre-op Phys. Exam Physician Exam Last Vital Signs Date Time Temp Pulse Resp B/P Pulse Ox O2 Delivery O2 Flow Rate FiO2 02/13/17 08:00 99.3 89 20 143/79 99 Room Air Constitutional: NAD Neurologic: CN 2-12 intact, other - unable to obtaine Cardiovascular: RRR, no M/R/G Gastrointestinal: other - some tenderness Airway Exam Mallampati Score: Class II Neck: stiff ROM: limited Teeth: missing, broken Dentures: no lower, no upper Anesthesia Pre-op A/P Labs Hematology Test 02/12/17 15:30 02/13/17 10:35 White Blood Count 9.0 K/UL (4.8-10.8) 9.2 K/UL (4.8-10.8) Red Blood Count 4.51 M/UL (4.70-6.10) L 4.71 M/UL (4.70-6.10) Hemoglobin 12.3 G/DL (14.2-18.0) L 12.5 G/DL (14.2-18.0) L Hematocrit 37.5 % (42.0-52.0) L 39.6 % (42.0-52.0) L Mean Corpuscular Volume 83 FL (80-99) 84 FL (80-99) Mean Corpuscular Hemoglobin 27.2 PG (27.0-31.0) 26.6 PG (27.0-31.0) L Mean Corpuscular Hemoglobin Concent 32.7 G/DL (32.0-36.0) 31.7 G/DL (32.0-36.0) L Red Cell Distribution Width 13.6 % (11.6-14.8) 13.5 % (11.6-14.8) Platelet Count 539 K/UL (150-450) H 567 K/UL (150-450) H Mean Platelet Volume 4.3 FL (6.5-10.1) L 4.3 FL (6.5-10.1) L Neutrophils (%) (Auto) 83.1 % (45.0-75.0) H % (45.0-75.0) Lymphocytes (%) (Auto) 8.9 % (20.0-45.0) L % (20.0-45.0) Monocytes (%) (Auto) 5.7 % (1.0-10.0) % (1.0-10.0) Eosinophils (%) (Auto) 0.8 % (0.0-3.0) % (0.0-3.0) Basophils (%) (Auto) 1.6 % (0.0-2.0) % (0.0-2.0) Differential Total Cells Counted 100 Neutrophils % (Manual) 87 % (45-75) H Lymphocytes % (Manual) 8 % (20-45) L Monocytes % (Manual) 5 % (1-10) Eosinophils % (Manual) 0 % (0-3) Basophils % (Manual) 0 % (0-2) Band Neutrophils 0 % (0-8) Platelet Estimate Increased H Platelet Morphology Normal Hypochromasia 1+ Coagulation Test 02/12/17 15:30 02/13/17 10:35 Prothrombin Time 10.9 SEC (9.30-11.50) Prothromb Time International Ratio 1.1 (0.9-1.1) Activated Partial Thromboplast Time 35 SEC (23-33) H 36 SEC (23-33) H Chemistry Test 02/12/17 15:30 02/12/17 21:36 02/13/17 00:30 02/13/17 10:35 Sodium Level 136 mEQ/L (135-145) 137 mEQ/L (135-145) Potassium Level 3.7 mEQ/L (3.4-4.9) 4.3 mEQ/L (3.4-4.9) Chloride Level 92 mEQ/L (98-107) L 96 mEQ/L (98-107) L Carbon Dioxide Level 25 mEQ/L (20-30) 27 mEQ/L (20-30) Anion Gap 19 (5-15) H 14 (5-15) Blood Urea Nitrogen 9 mg/dL (7-23) 7 mg/dL (7-23) Creatinine 0.9 mg/dL (0.7-1.2) 0.8 mg/dL (0.7-1.2) Estimat Glomerular Filtration Rate > 60 mL/min (>60) > 60 mL/min (>60) Glucose Level 105 mg/dL (74-106) 113 mg/dL (74-106) H Calcium Level 9.1 mg/dL (8.6-10.2) 9.0 mg/dL (8.6-10.2) Total Bilirubin 0.3 mg/dL (0.0-1.2) 0.3 mg/dL (0.0-1.2) Aspartate Amino Transf (AST/SGOT) 43 U/L (5-40) H 37 U/L (5-40) Alanine Aminotransferase (ALT/SGPT) 42 U/L (3-41) H 36 U/L (3-41) Alkaline Phosphatase 60 U/L (40-129) 59 U/L (40-129) Total Creatine Kinase 111 U/L (38-174) Creatine Kinase MB 3.0 ng/mL (< 6.7) Creatine Kinase MB Relative Index 2.7 Troponin I < 0.30 ng/mL (<=0.30) Pro-B-Type Natriuretic Peptide 205 pg/mL (0-125) H Total Protein 7.7 g/dL (6.6-8.7) 7.9 g/dL (6.6-8.7) Albumin 3.5 g/dL (3.5-5.2) 3.6 g/dL (3.5-5.2) Globulin 4.2 g/dL 4.3 g/dL Albumin/Globulin Ratio 0.8 (1.0-2.7) L 0.8 (1.0-2.7) L Lipase 13 U/L (< 60) 15 U/L (< 60) Lactic Acid Level 2.70 mmol/L (0.66-2.22) H 2.40 mmol/L (0.66-2.22) H Amylase Level 96 U/L (10-110) Studies Pre-op Studies: EKG - NSR Risk Assessment & Plan Assessment: ASA 3 Plan: GA with ETT Status Change Before Surgery: No Pre-Antibiotics Drug: Ancef 1gr. Given Within 1 Hr of Incision: Yes Time Given: 11:50 NAI ASHLEY M.D. Feb 13, 2017 12:28
[2017-02-13] MEDS ORDERED: Midazolam 2mg/2ml Inj IVP PRN (12:30)
[2017-02-13] MEDS ORDERED: Hydromorphone 0.5mg/0.5ml inj IVP PRN (12:30)
[2017-02-13] MEDS ORDERED: DiphenhydrAMINE 50mg/ml Inj IVP PRN (12:30)
[2017-02-13] MEDS ORDERED: Ketorolac 30mg Inj IV PRN (12:30)
--- NOTE | 2017-02-13 13:07 | Brief Operative Note ---
Immediate Post Operative Note Operative Note Pre-op Diagnosis: incarcerated ventral hernia epigastric Procedure: repair of ventral epigastric hernia with mesh Post-op Diagnosis: same as pre-op Findings: consistent w/pre-op dx studies Surgeon: Mariela Skate Boarder: Justin Anesthesiologist: Alona Anesthesia: general Specimen: yes - hernia sac Complications: none Condition: stable Fluids: see records Estimated Blood Loss: minimal Drains: none Implant(s) used?: No Jagdish Sierra Feb 13, 2017 13:07
--- NOTE | 2017-02-13 13:22 | Immediate Post-Op Evaluation ---
Immediate Post-Op Evalulation Immediate Post-Op Evalulation Procedure: Incarcerated ventral hernia repair Date of Evaluation: Feb 13, 2017 Time of Evaluation: 13:20 IV Fluids: 1100 Blood Products: none Estimated Blood Loss: min Urinary Output: none Blood Pressure Systolic: 129 Blood Pressure Diastolic: 88 Pulse Rate: 98 Respiratory Rate: 22 O2 Sat by Pulse Oximetry: 99 Temperature (Fahrenheit): 98.5 Pain Score (1-10): 2 Nausea: No Vomiting: No Complications none Patient Status: reacts, patent, extubated, none Hydration Status: adequate NAI ASHLEY M.D. Feb 13, 2017 13:22
[2017-02-13] MEDS: Meperidine 25mg/ml Inj IV PRN ×2 (13:40→13:43)
--- NOTE | 2017-02-13 14:25 | Diagnostic Imaging Report ---
Indication: Chest pain Technique: One view of the chest Comparison: 12/25/2016 Findings: Lungs and pleural spaces are clear. Heart size is upper limits of normal. Aorta is tortuous. No significant change Impression: No acute process
--- NOTE | 2017-02-13 15:29 | Consultation ---
History of Present Illness General Date patient seen: Feb 13, 2017 Time patient seen: 12:00 Chief Complaint: Chest Pain Referring physician: dr Kendall Reason for Consultation: inpt management Present Illness HPI 61 y/old male presented with complaints of mid abdominal pain for the past few days + vomited few times on the day presented to ED no diarrhea not passing gas initially with complaints of chest pain, hat turned out to be epigastric and mid abdominal pain patient was not able to provide good history physical exam revealed large ventral abdominal hernia , not reducible concern for incarceration apparently patient had an epigastric hernia for 2 years. For the last few days developed problems with nausea and vomiting, causing protrusion of the hernia. No fever or chills. CT A/P done and revealed Unusual upper abdominal wall ventral hernia, into protruding the anterior wall of the gastric antrum and a small amount of fluid. Evidence of prior cecal resection Edema of the mesenteric fat and trace intraperitoneal fluid Dilated common bile duct without evidence of downstream obstructive lesion. lab work revealed no leukocytosis, mild anemia. stable e/lytes elevated lactic acid Allergies: Coded Allergies: No Known Allergies (Unverified , 12/25/16) Medication History Scheduled Ibuprofen* (Motrin*), 600 MG ORAL THREE TIMES A DAY No Known Medications* (NKM - No Known Medications*), 0 ., (Reported) Patient History Healthcare decision maker pt alert and oriented Resuscitation status Full Code Advanced Directive on File unknown, too drowsy to answer questions Past Medical/Surgical History Past Medical/Surgical History: (1) IV drug abuse (2) HTN (hypertension) Review of Systems ROS Narrative unable to do ROS, patient unable to provide info Physical Exam General Appearance: no apparent distress, alert Lines, tubes and drains: peripheral HEENT: normocephalic, atraumatic Neck: non-tender, supple Respiratory/Chest: lungs clear, no respiratory distress, no accessory muscle use Cardiovascular/Chest: normal rate, regular rhythm, no JVD Abdomen: non tender, soft, other - ventral hernia partially reducible Extremities: non-tender, no calf tenderness, normal capillary refill Skin Exam: warm/dry Neurologic: no motor/sensory deficits, alert, responsive Musculoskeletal: normal muscle bulk Last 24 Hour Vital Signs Date Time Temp Pulse Resp B/P Pulse Ox O2 Delivery O2 Flow Rate FiO2 02/13/17 14:41 99.4 86 22 147/105 100 Simple Mask 10.0 02/13/17 14:30 90 22 150/100 100 Simple Mask 10.0 02/13/17 14:21 99.5 02/13/17 14:15 90 22 165/100 100 Simple Mask 10.0 02/13/17 14:00 97 22 149/100 100 Simple Mask 10.0 02/13/17 13:51 97 22 149/100 100 Simple Mask 10.0 02/13/17 13:43 97 22 152/103 100 Simple Mask 10.0 02/13/17 13:28 97 22 134/95 100 Simple Mask 10.0 02/13/17 13:22 98 22 99 02/13/17 13:21 99 22 134/95 100 Simple Mask 10.0 02/13/17 13:15 97 22 129/88 100 Simple Mask 10.0 02/13/17 13:10 99.5 107 22 123/74 100 Simple Mask 10.0 02/13/17 08:00 99.3 89 20 143/79 99 Room Air 02/13/17 04:00 98.1 62 18 155/95 96 Room Air 02/13/17 02:14 99.0 62 20 149/81 98 Room Air 02/13/17 01:57 99.0 62 20 149/81 98 Room Air 02/12/17 23:30 99.0 65 20 158/94 98 Room Air 02/12/17 21:06 97.9 62 20 151/78 98 Room Air 02/12/17 19:30 97.9 86 20 150/80 98 Room Air 02/12/17 17:59 88 20 Room Air 02/12/17 17:58 97.9 88 16 158/84 98 Room Air 02/12/17 16:27 97.9 Intake and Output 02/12/17 02/13/17 19:00 07:00 Intake Total 1042.5 ml Output Total 200 ml 600 ml Balance -200 ml 442.5 ml Intake IV Total 1042.5 ml Output Urine Total 500 ml Emesis 200 ml 100 ml # Voids 1 Laboratory Tests Test 02/12/17 15:30 02/12/17 18:14 02/12/17 21:36 02/13/17 00:30 White Blood Count 9.0 K/UL (4.8-10.8) Red Blood Count 4.51 M/UL (4.70-6.10) L Hemoglobin 12.3 G/DL (14.2-18.0) L Hematocrit 37.5 % (42.0-52.0) L Mean Corpuscular Volume 83 FL (80-99) Mean Corpuscular Hemoglobin 27.2 PG (27.0-31.0) Mean Corpuscular Hemoglobin Concent 32.7 G/DL (32.0-36.0) Red Cell Distribution Width 13.6 % (11.6-14.8) Platelet Count 539 K/UL (150-450) H Mean Platelet Volume 4.3 FL (6.5-10.1) L Neutrophils (%) (Auto) 83.1 % (45.0-75.0) H Lymphocytes (%) (Auto) 8.9 % (20.0-45.0) L Monocytes (%) (Auto) 5.7 % (1.0-10.0) Eosinophils (%) (Auto) 0.8 % (0.0-3.0) Basophils (%) (Auto) 1.6 % (0.0-2.0) Prothrombin Time 10.9 SEC (9.30-11.50) Prothromb Time International Ratio 1.1 (0.9-1.1) Activated Partial Thromboplast Time 35 SEC (23-33) H Sodium Level 136 mEQ/L (135-145) Potassium Level 3.7 mEQ/L (3.4-4.9) Chloride Level 92 mEQ/L (98-107) L Carbon Dioxide Level 25 mEQ/L (20-30) Anion Gap 19 (5-15) H Blood Urea Nitrogen 9 mg/dL (7-23) Creatinine 0.9 mg/dL (0.7-1.2) Estimat Glomerular Filtration Rate > 60 mL/min (>60) Glucose Level 105 mg/dL (74-106) Calcium Level 9.1 mg/dL (8.6-10.2) Total Bilirubin 0.3 mg/dL (0.0-1.2) Aspartate Amino Transf (AST/SGOT) 43 U/L (5-40) H Alanine Aminotransferase (ALT/SGPT) 42 U/L (3-41) H Alkaline Phosphatase 60 U/L (40-129) Total Creatine Kinase 111 U/L (38-174) Creatine Kinase MB 3.0 ng/mL (< 6.7) Creatine Kinase MB Relative Index 2.7 Troponin I < 0.30 ng/mL (<=0.30) Pro-B-Type Natriuretic Peptide 205 pg/mL (0-125) H Total Protein 7.7 g/dL (6.6-8.7) Albumin 3.5 g/dL (3.5-5.2) Globulin 4.2 g/dL Albumin/Globulin Ratio 0.8 (1.0-2.7) L Lipase 13 U/L (< 60) Urine Color Pale yellow Urine Appearance Clear Urine pH 8 (4.5-8.0) Urine Specific [place] 1.010 (1.005-1.035) Urine Protein Negative (NEGATIVE) Urine Glucose (UA) Negative (NEGATIVE) Urine Ketones Negative (NEGATIVE) Urine Occult Blood Negative (NEGATIVE) Urine Nitrite Negative (NEGATIVE) Urine Bilirubin Negative (NEGATIVE) Urine Urobilinogen Normal MG/DL (0.0-1.0) Urine Leukocyte Esterase Negative (NEGATIVE) Lactic Acid Level 2.70 mmol/L (0.66-2.22) H 2.40 mmol/L (0.66-2.22) H Test 02/13/17 10:35 White Blood Count 9.2 K/UL (4.8-10.8) Red Blood Count 4.71 M/UL (4.70-6.10) Hemoglobin 12.5 G/DL (14.2-18.0) L Hematocrit 39.6 % (42.0-52.0) L Mean Corpuscular Volume 84 FL (80-99) Mean Corpuscular Hemoglobin 26.6 PG (27.0-31.0) L Mean Corpuscular Hemoglobin Concent 31.7 G/DL (32.0-36.0) L Red Cell Distribution Width 13.5 % (11.6-14.8) Platelet Count 567 K/UL (150-450) H Mean Platelet Volume 4.3 FL (6.5-10.1) L Neutrophils (%) (Auto) % (45.0-75.0) Lymphocytes (%) (Auto) % (20.0-45.0) Monocytes (%) (Auto) % (1.0-10.0) Eosinophils (%) (Auto) % (0.0-3.0) Basophils (%) (Auto) % (0.0-2.0) Differential Total Cells Counted 100 Neutrophils % (Manual) 87 % (45-75) H Lymphocytes % (Manual) 8 % (20-45) L Monocytes % (Manual) 5 % (1-10) Eosinophils % (Manual) 0 % (0-3) Basophils % (Manual) 0 % (0-2) Band Neutrophils 0 % (0-8) Platelet Estimate Increased H Platelet Morphology Normal Hypochromasia 1+ Activated Partial Thromboplast Time 36 SEC (23-33) H Sodium Level 137 mEQ/L (135-145) Potassium Level 4.3 mEQ/L (3.4-4.9) Chloride Level 96 mEQ/L (98-107) L Carbon Dioxide Level 27 mEQ/L (20-30) Anion Gap 14 (5-15) Blood Urea Nitrogen 7 mg/dL (7-23) Creatinine 0.8 mg/dL (0.7-1.2) Estimat Glomerular Filtration Rate > 60 mL/min (>60) Glucose Level 113 mg/dL (74-106) H Calcium Level 9.0 mg/dL (8.6-10.2) Total Bilirubin 0.3 mg/dL (0.0-1.2) Aspartate Amino Transf (AST/SGOT) 37 U/L (5-40) Alanine Aminotransferase (ALT/SGPT) 36 U/L (3-41) Alkaline Phosphatase 59 U/L (40-129) Total Protein 7.9 g/dL (6.6-8.7) Albumin 3.6 g/dL (3.5-5.2) Globulin 4.3 g/dL Albumin/Globulin Ratio 0.8 (1.0-2.7) L Amylase Level 96 U/L (10-110) Lipase 15 U/L (< 60) Height (Feet): 5 Height (Inches): 6.00 Weight (Pounds): 150 Medications Current Medications Medications (Trade) Dose Ordered Sig/Nancy Route PRN Reason Start Time Stop Time Status Last Admin Dose Admin Acetaminophen (Tylenol) 650 mg Q4H PRN ORAL T>100.5 02/12/17 19:45 03/14/17 19:44 Acetaminophen/ Hydrocodone Bitart ([place] 5/325) 1 tab Q4H PRN ORAL Moderate Pain (Pain Scale 4-6) 02/13/17 13:15 02/20/17 13:14 Al Hydroxide/Mg Hydroxide (Mylanta II) 30 ml Q6H PRN ORAL dyspepsia 02/12/17 20:00 03/14/17 19:59 Dextrose (Dextrose 50%) STAT PRN IV Hypoglycemia 02/12/17 19:45 03/14/17 19:44 Dextrose/Sodium Chloride (D5 0.45% NS) 1,000 ml @ 75 mls/hr [id number] IV 02/12/17 20:00 03/14/17 19:59 02/13/17 03:26 Diphenhydramine HCl (Benadryl) 25 mg Q6H PRN ORAL Itching/Pruritis 02/12/17 20:00 03/14/17 19:59 Diphenhydramine HCl 25 mg 25 mg Q15M PRN IVP Itching 02/13/17 12:30 02/13/17 15:30 Heparin Sodium (Porcine) (Heparin 5000 units/ml) 5,000 units EVERY 12 HOURS SUBQ 02/12/17 21:00 03/14/17 20:59 02/13/17 09:02 Hydromorphone HCl (Dilaudid) 0.5 mg Q15M PRN IVP Severe Pain (Pain Scale 7-10) 02/13/17 12:30 02/13/17 15:30 Ketorolac Tromethamine (Toradol 30mg) 30 mg Q1H PRN IV Severe Breakthru Pain (>7) 02/13/17 12:30 02/13/17 15:30 Lactated Ringer's (Lactated Ringer's 1000ml) 1,000 ml @ 10 mls/hr Q24H IVLG 02/13/17 12:28 02/13/17 15:30 Meperidine HCl (Demerol) 50 mg Q15M PRN IV Shivering 02/13/17 12:30 02/13/17 15:30 02/13/17 13:43 Midazolam HCl (Versed 2mg/2ml vial) 1 mg Q15M PRN IVP For Anxiety 02/13/17 12:30 02/13/17 15:30 Morphine Sulfate (Morphine Sulfate) 2 mg Q4H PRN IVP Severe Pain (Pain Scale 7-10) 02/12/17 19:45 02/19/17 19:44 02/13/17 06:43 Nitroglycerin (Ntg) 0.4 mg Q5M X 3 DOSES PRN SL Prn Chest Pain 02/12/17 19:45 03/14/17 19:44 Ondansetron HCl (Zofran) 4 mg Q1H PRN IVP Nausea & Vomiting 02/13/17 12:30 02/13/17 15:30 Ondansetron HCl (Zofran) 4 mg Q6H PRN IVP Nausea & Vomiting 02/12/17 20:00 03/14/17 19:59 02/13/17 06:41 Pantoprazole (Protonix) 40 mg DAILY IVP 02/13/17 11:00 03/15/17 10:59 Polyethylene Glycol (Miralax) 17 gm HSPRN PRN ORAL Constipation 02/12/17 21:00 03/14/17 20:59 Sennosides (Senokot) 8.6 mg DAILY PRN ORAL Constipation 02/13/17 13:15 03/15/17 13:14 Temazepam (Restoril) 15 mg HSPRN PRN ORAL Insomnia 02/12/17 21:00 02/19/17 20:59 Assessment/Plan Assessment/Plan ASSESSMENT incarcerated hernia IV drug abuse hx of HTN PLAN OF CARE NPO IVF general surgery follows surgery later today pain management DVT/GI prophylaxis monitor BP, optimize treatment as needed case discussed and evaluated by supervising physician Rae Hernandez NP (Vanchtein) Feb 13, 2017 15:29
--- NOTE | 2017-02-13 16:43 | History & Physical ---
History and Physical History & Physicial Dictated for Int Med-Dr Pemberton no. [id number]. BRDIGER CARPIO Feb 13, 2017 16:43
--- NOTE | 2017-02-13 23:28 | Operative Note - Dictated ---
DATE OF OPERATION: 02/13/2017 PREOPERATIVE DIAGNOSIS: Incarcerated ventral epigastric hernia. POSTOPERATIVE DIAGNOSIS: Incarcerated ventral epigastric hernia. OPERATION PERFORMED: Repair of ventral epigastric hernia with mesh. ATTENDING SURGEON: Jagdish Sierra M.D. ASSISTING SURGEON: Dilan Anderson M.D. ANESTHESIOLOGIST: Noah Sage M.D. 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 SPECIMENS: Hernia sac. IV FLUIDS: Please see anesthesia records. WOUND CLASSIFICATION: Class I. COMPLICATIONS: None. CONDITION: Stable. ESTIMATED BLOOD LOSS: Minimal. DRAINS: None. ANTIBIOTICS: IV Ancef given one hour prior to incision. OPERATIVE FINDINGS: 1. Moderate-sized epigastric ventral hernia with a large incarcerated hernia sac. 2. No visualized bowel contents or omentum in hernia sac. 3. Stomach and bowel, otherwise normal. 4. Hernia sac excised. 5. Ventral hernia repair with mesh was successful. INDICATIONS FOR PROCEDURE: The patient is a 61-year-old male, who presented to emergency department earlier complaining of worsening epigastric abdominal pain, abdominal bulge, nausea, and emesis. The patient states that he has had this for approximately two days and it has been worsening where he decided to come to the emergency department for evaluation. The patient states that he has not really had similar symptoms in the past and he has otherwise been well. The patient is a poor historian. He does not recall the reason for his prior midline laparotomy incision or any prior abdominal surgery. He does state that he has a right inguinal hernia and thought that was repaired prior, but no incision could be identified. During examination as noted, the patient had a fairly large protruding mass in the epigastric region that was difficult to reduce, but once reduced, it immediately return again and was impending likely incarceration. At times, it is very difficult to reduce the hernia. Hernia defect was [id number] sized, approximately 2 to 3 cm when palpated. The patient persisted to have nausea and vomiting and after hydration, did not improve. At this time, after explaining the risks, benefits, and alternatives to surgical intervention with the patient, the patient consented to surgery. I explained to the patient that he could potentially not have this operated on, but given how quickly the contents return to the hernia sac and how difficult at times to reduce it, as well as CT findings suggestive of potential gastric antrum and omentum within the hernia sac, there is a significant concern for potential bowel compromise or incarceration or strangulation in the future. Furthermore, the patient continues to persistently have pain with nausea and multiple bouts of emesis, which makes him very uncomfortable. The risk of bowel injury, bowel resection, ostomy, mesh infection, wound infection, pain, drain placement, and other complications of surgery were explained to the patient in detail. The patient did express understanding prior to signing consent. OPERATIVE NOTE: The patient was taken to the operative room and placed on the operative table in supine position with bilateral arms out. All bony prominences were well padded with gel pads. IV antibiotics, 1 g of IV Ancef was given prior to incision. SCDs were placed. General anesthesia was induced and the patient was intubated. The abdomen was then prepped and draped in standard surgical fashion. Upon induction and relaxing of the patient, the hernia was able to be reduced. At this time, we identified the defect was approximately 2 cm in the midline epigastric region. An incision was made using a fresh #10 blade over the area of the fascial hernia. This was taken down to the fascia using electrocautery and blunt dissection as necessary. The fascia was cleared and the hernia sac was identified. Given the size of the sac was significantly larger than the small hernia defect, decision was made to extend the hernia defect in the caudal direction through the midline. Once the hernia defect was made a little bit larger, the hernia sac was grasped with a [place] grasper and brought through the midline defect. The hernia sac was approximately 6 cm x 6 cm x 4 cm in size with an area of necrosis. No bowel contents or omentum contents were noted in the hernia sac and there was noted to be mainly preperitoneal contents including the parts of the falciform. The hernia sac was excised in whole with the base near the falciform being divided using #0 silk ties. The hernia sac was sent to pathology for review. The abdomen was then inspected and no significant abdominal adhesions were noted. The liver was identified and noted to be otherwise normal. The stomach was identified and did not seem to have ever been incarcerated or show signs of inflammation or prior involvement within the hernia. A repeat visualized portions of the small and large bowel, they looked otherwise normal. No bowel distention or other abnormalities were noted. There is no free fluid noted in the abdomen as well. At this time, decision was made to begin the closure of the hernia defect. A space was made between the fascia and the peritoneum in the preperitoneal space using electrocautery. Once this was done, the peritoneum was closed using a 2-0 Prolene suture. Once the peritoneal defect was closed, an 8 cm round Ventralex mesh was brought into the operative field. This mesh allowed for coverage of the hernia defect in the preperitoneal space anterior to the peritoneum and posterior to the fascia. There is significant coverage circumferentially around the area of the defect. At this time, the borders of the hernia were excised to clean healthy fascia. The round Ventralex mesh was placed over in the preperitoneal space below the fascia. The mesh was sutured to the fascia in a circumferential running fashion using a 2-0 Prolene suture. Once this was complete, an appropriate mesh placement was noted and decision was made to close the fascial defect. The mesh wound were irrigated with antibiotic-soaked solution and good hemostasis was achieved. At this time, the fascia defect was closed in midline using a #0 PDS suture in a running fashion. A satisfactory ventral hernia repair was obtained without significant tension or any complications. The wound was then irrigated and skin incision was closed using 4-0 Monocryl sutures followed by placement of Steri-Strips and dressings. The patient tolerated the procedure well and was extubated postoperatively and taken to the postanesthetic care unit in stable condition. Jagdish Sierra M.D. DR: DARRON JOB#: [id number] CC: SAWYER
--- NOTE | 2017-02-13 23:38 | History and Physical Report ---
DATE OF ADMISSION: 02/12/[address] Kendall. CHIEF COMPLAINT: The patient is a 61-year-old male, presents with complaint of abdominal pain. HISTORY OF PRESENT ILLNESS: The patient has a history of right inguinal hernia repair approximately three months ago. The patient states he has had epigastric pain for two years. The patient was diagnosed with an epigastric ventral hernia. The patient presented to [facility] emergency room. The patient is complaining of severe epigastric pain. The patient was found to have incarcerated ventral hernia. The patient is admitted for abdominal pain and incarcerated ventral hernia for probable repair of ventral hernia. PAST MEDICAL HISTORY: Significant for, 1. Hypertension. 2. Intravenous drug abuse. PAST SURGICAL HISTORY: Significant for right inguinal hernia repair three months ago. CURRENT MEDICATIONS: Ibuprofen 600 mg one tablet p.o. three times daily p.r.n. ALLERGIES: No known drug allergies. SOCIAL HISTORY: The patient is . The patient admits to tobacco use. The patient admits to heroin use as above. The patient denies IV drug abuse. REVIEW OF SYSTEMS: Constitutional: The patient denies weight loss or weight gain. The patient denies fevers or chills. HEENT: The patient denies ear or throat pain. The patient denies headache. Cardiovascular: The patient denies palpitations or chest pain. Chest: The patient denies wheeze or shortness of breath . Abdomen: The patient complains of midepigastric pain as above. The patient denies nausea, vomiting, diarrhea, or constipation. Genitourinary: The patient denies dysuria or increased frequency of urination. Neuromuscular: The patient denies seizure or generalized weakness. PHYSICAL EXAMINATION: VITAL SIGNS: Temperature 98.2 degrees, respirations 20, pulse 88, and blood pressure 156/105. GENERAL: The patient is well-developed and well-nourished male, in no apparent distress. HEENT: Eyes, pupils are equal and responsive to light and accommodation. Extraocular movements are intact. NECK: Supple without lymphadenopathy. CHEST: Lungs are clear to auscultation bilaterally without wheezes or rales. CARDIOVASCULAR: Regular rhythm and rate. S1 and S2 normal without murmurs, rubs, or gallops. ABDOMEN: Soft, distended, diffusely tender with positive bowel sounds. No evidence of tenderness to palpation over the midepigastric region. There is no rebound or guarding. EXTREMITIES: Negative for clubbing, cyanosis, or edema. RECTAL: Refused. GENITAL: Refused. NEUROLOGIC: Cranial nerves II through XII are grossly intact without focal deficits. Motor strength is 5/5 bilaterally. Deep tendon reflexes are 2+ plantar. LABORATORY STUDIES: WBC 9.0, hemoglobin 12.2, hematocrit 37.5, and platelets 539,000. Sodium 136, potassium 3.7, chloride 92, CO2 25, BUN 9, creatinine 0.9, and glucose 105. Lactic acid elevated at 2.70. A CT scan of the abdomen in the usual upper abdominal wall ventral hernia, which appears to extend into the anterior wall of the gastric antrum. ASSESSMENT: This is a 61-year-old male, 1. Abdominal pain. 2. Incarcerated ventral hernia. 3. Hypertension. TREATMENT: 1. Abdominal pain/incarcerated ventral hernia. A General Surgery consultation was obtained with Dr. Anderson. The patient may require repair of ventral hernia. We will keep the patient NPO until decision for surgery has been made. 2. Hypertension. The patient is currently NPO. Juan Diego Madison M.D. DR: Uma JOB#: [id number] CC:
[2017-02-14 04:00] VITALS: BP 145/91
[2017-02-14 08:00] VITALS: BP 148/90
[2017-02-14] MEDS: Pantoprazole Inj IVP SCH (09:21)
[2017-02-14] MEDS: D5 1/2NS 1,000 ML IV SCH (09:21)
[2017-02-14] MEDS: Morphine Sulfate 2mg/ml Inj IVP PRN ×2 (09:21→17:54)
[2017-02-14] MEDS: Heparin 5000 units/ml inj SUBQ SCH ×2 (09:27→20:59)
--- NOTE | 2017-02-14 10:21 | 48 Hour Post Anesthesia Eval ---
Post Anesthesia Evaluation Procedure: Incarcerated ventral hernia repair Date of Evaluation: Feb 14, 2017 Time of Evaluation: 10:19 Blood Pressure Systolic: 146 0: 78 Pulse Rate: 86 Respiratory Rate: 22 Temperature (Fahrenheit): 97.6 O2 Sat by Pulse Oximetry: 98 Airway: patent Nausea: No Vomiting: No Pain Intensity: 3 Hydration Status: adequate Cardiopulmonary Status: stable Mental Status/LOC: patient returned to baseline Follow-up Care/Observations: n/a Post-Anesthesia Complications: none Follow-up care needed: N/A NAI ASHLEY M.D. Feb 14, 2017 10:21
[2017-02-14 12:06] LABS: MEAN CORPUSCULAR HEMOGLOBIN 26.7 PG (27.0-31.0); MEAN CORPUSCULAR HGB CONC 32.3 G/DL (32.0-36.0); MEAN CORPUSCULAR VOLUME 83 FL (80-99); MEAN PLATELET VOLUME 4.4 FL (6.5-10.1); PLATELET COUNT 596 K/UL (150-450); RED BLOOD COUNT 4.88 M/UL (4.70-6.10); RED CELL DISTRIBUTION WIDTH 13.3 % (11.6-14.8); WHITE BLOOD COUNT 10.2 K/UL (4.8-10.8)
[2017-02-14 12:08] VITALS: BP 124/82
--- NOTE | 2017-02-14 12:15 | General Progress Note ---
Progress Note Progress Note Afebrile, hungry, wants to go home. No n/v. No flatus Abdomen: soft, BS normal Stable, full liquids, advance tomorrow and home 1-2 days if all well. VIJAY PALACIO Feb 14, 2017 12:15
[2017-02-14 12:20] LABS: ANION GAP 16 (5-15); CALCIUM 8.7 mg/dL (8.6-10.2); CARBON DIOXIDE 23 mEQ/L (20-30); CHLORIDE 91 mEQ/L (98-107); CREATININE 0.9 mg/dL (0.7-1.2); GLOMERULAR FILTRATION RATE > 60 mL/min (>60); HEMOLYSIS 4; POTASSIUM 4.3 mEQ/L (3.4-4.9); SODIUM 130 mEQ/L (135-145)
[2017-02-14] MEDS: Norco 5mg/325mg tab ORAL PRN (12:37)
[2017-02-14 12:51] LABS: LYMPHOCYTES % (MANUAL) 9 % (20-45); NEUTROPHILS % (MANUAL) 90 % (45-75); TOTAL CELLS COUNTED 100
[2017-02-14 12:53] LABS: BAND NEUTROPHILS % (MANUAL) 0 % (0-8); BASOPHILS % (MANUAL) 0 % (0-2); EOSINOPHILS % (MANUAL) 0 % (0-3); PLATELET ESTIMATE INCREASED; PLATELET MORPHOLOGY NORMAL
--- NOTE | 2017-02-14 14:13 | Pulmonology Progress Note ---
Assessment/Plan Assessment/Plan ASSESSMENT incarcerated ventral epigastric hernia s/p Repair of ventral epigastric hernia with mesh on 02/13 . IV drug abuse hx of HTN postoperative pain hyponatremia PLAN OF CARE s/p surgery 02/13 surgery follwos started on FL diet and advance as per surgery IVF, change t NS, check lytes in am pain management DVT/GI prophylaxis monitor BP, optimize treatment as needed encourage ambulation IS at the bedside case discussed and evaluated by supervising physician Subjective Allergies: Coded Allergies: No Known Allergies (Unverified , 12/25/16) Subjective afebrile, no leukocytosis intermittent postop pain controlled with curent regimen Objective Last 24 Hour Vital Signs Date Time Temp Pulse Resp B/P Pulse Ox O2 Delivery O2 Flow Rate FiO2 02/14/17 13:36 98.0 02/14/17 12:08 98.0 94 20 124/82 98 Room Air 02/14/17 11:51 71 20 Nasal Cannula 2.0 28 02/14/17 11:50 Nasal Cannula 2.0 28 02/14/17 11:50 99 Nasal Cannula 2.0 28 02/14/17 10:21 86 22 98 02/14/17 09:51 98.6 02/14/17 08:00 98.6 96 20 148/90 97 Room Air 02/14/17 04:00 99.3 73 18 145/91 98 02/13/17 20:00 99.0 92 20 152/100 99 Nasal Cannula 2.0 02/13/17 15:53 98.2 88 20 156/105 99 Nasal Cannula 2.0 02/13/17 14:41 99.4 86 22 147/105 100 Simple Mask 10.0 02/13/17 14:30 90 22 150/100 100 Simple Mask 10.0 02/13/17 14:21 99.5 02/13/17 14:15 90 22 165/100 100 Simple Mask 10.0 Intake and Output 02/13/17 02/14/17 19:00 07:00 Intake Total 1375 ml 1065 ml Output Total 450 ml 600 ml Balance 925 ml 465 ml Intake Oral 240 ml IV Total 1375 ml 825 ml Output Urine Total 450 ml 600 ml # Voids 2 Objective General Appearance: no apparent distress, alert Lines, tubes and drains: peripheral HEENT: normocephalic, atraumatic Neck: non-tender, supple Respiratory/Chest: lungs clear, no respiratory distress, no accessory muscle use Cardiovascular/Chest: normal rate, regular rhythm, no JVD Abdomen: mild TTP around surgical incision, soft, steri strip upper midabdominal area, C/D/I Extremities: non-tender, no calf tenderness, normal capillary refill Skin Exam: warm/dry Neurologic: no motor/sensory deficits, alert, responsive Musculoskeletal: normal muscle bulk Laboratory Tests 02/14/17 11:20: White Blood Count 10.2, Red Blood Count 4.88, Hemoglobin 13.1L, Hematocrit 40.4L , Mean Corpuscular Volume 83, Mean Corpuscular Hemoglobin 26.7L, Mean Corpuscular Hemoglobin Concent 32.3, Red Cell Distribution Width 13.3, Platelet Count 596H, Mean Platelet Volume 4.4L, Neutrophils (%) (Auto) , Lymphocytes (%) (Auto) , Monocytes (%) (Auto) , Eosinophils (%) (Auto) , Basophils (%) (Auto) , Differential Total Cells Counted 100, Neutrophils % (Manual) 90H, Lymphocytes % (Manual) 9L, Monocytes % (Manual) 1, Eosinophils % (Manual) 0, Basophils % ( Manual) 0, Band Neutrophils 0, Platelet Estimate IncreasedH, Platelet Morphology Normal, Red Blood Cell Morphology Normal, Sodium Level 130L, Potassium Level 4.3, Chloride Level 91L, Carbon Dioxide Level 23, Anion Gap 16H , Blood Urea Nitrogen 9, Creatinine 0.9, Estimat Glomerular Filtration Rate > 60 , Glucose Level 110H, Calcium Level 8.7 Current Medications Medications (Trade) Dose Ordered Sig/Nancy Route PRN Reason Start Time Stop Time Status Last Admin Dose Admin Acetaminophen (Tylenol) 650 mg Q4H PRN ORAL T>100.5 02/12/17 19:45 03/14/17 19:44 Acetaminophen/ Hydrocodone Bitart ([place] 5/325) 1 tab Q4H PRN ORAL Moderate Pain (Pain Scale 4-6) 02/13/17 13:15 02/20/17 13:14 02/14/17 12:37 Al Hydroxide/Mg Hydroxide (Mylanta II) 30 ml Q6H PRN ORAL dyspepsia 02/12/17 20:00 03/14/17 19:59 Dextrose (Dextrose 50%) STAT PRN IV Hypoglycemia 02/12/17 19:45 03/14/17 19:44 Diphenhydramine HCl (Benadryl) 25 mg Q6H PRN ORAL Itching/Pruritis 02/12/17 20:00 03/14/17 19:59 Heparin Sodium (Porcine) (Heparin 5000 units/ml) 5,000 units EVERY 12 HOURS SUBQ 02/12/17 21:00 03/14/17 20:59 02/14/17 09:27 Morphine Sulfate (Morphine Sulfate) 2 mg Q4H PRN IVP Severe Pain (Pain Scale 7-10) 02/12/17 19:45 02/19/17 19:44 02/14/17 09:21 Nitroglycerin (Ntg) 0.4 mg Q5M X 3 DOSES PRN SL Prn Chest Pain 02/12/17 19:45 03/14/17 19:44 Ondansetron HCl (Zofran) 4 mg Q6H PRN IVP Nausea & Vomiting 02/12/17 20:00 03/14/17 19:59 02/13/17 06:41 Pantoprazole (Protonix) 40 mg DAILY IVP 02/13/17 11:00 03/15/17 10:59 02/14/17 09:21 Polyethylene Glycol (Miralax) 17 gm HSPRN PRN ORAL Constipation 02/12/17 21:00 03/14/17 20:59 Sennosides 8.6 mg 8.6 mg DAILY PRN ORAL Constipation 02/13/17 13:15 03/15/17 13:14 Sodium Chloride (Sodium Chloride 1000ml bag) 1,000 ml @ 75 mls/hr [id number] IV 02/14/17 14:00 03/16/17 13:59 02/14/17 14:00 Temazepam (Restoril) 15 mg HSPRN PRN ORAL Insomnia 02/12/17 21:00 02/19/17 20:59 Rae Hernandez NP (Vanchtein) Feb 14, 2017 14:13
[2017-02-14 16:00] VITALS: BP 147/110
[2017-02-14] MEDS ORDERED: D5 1/2NS 1000ml IV ONE (16:11)
--- NOTE | 2017-02-14 18:10 | Internal Med Progress Note ---
Subjective Date of Service: Feb 14, 2017 Physician Name Bridger Carpio Attending Physician Tristan Kendall MD Current Medications Medications (Trade) Dose Ordered Sig/Nancy Route PRN Reason Start Time Stop Time Status Last Admin Dose Admin Acetaminophen (Tylenol) 650 mg Q4H PRN ORAL T>100.5 02/12/17 19:45 03/14/17 19:44 Acetaminophen/ Hydrocodone Bitart ([place] 5/325) 1 tab Q4H PRN ORAL Moderate Pain (Pain Scale 4-6) 02/13/17 13:15 02/20/17 13:14 02/14/17 12:37 Al Hydroxide/Mg Hydroxide (Mylanta II) 30 ml Q6H PRN ORAL dyspepsia 02/12/17 20:00 03/14/17 19:59 Dextrose (Dextrose 50%) STAT PRN IV Hypoglycemia 02/12/17 19:45 03/14/17 19:44 Diphenhydramine HCl (Benadryl) 25 mg Q6H PRN ORAL Itching/Pruritis 02/12/17 20:00 03/14/17 19:59 Heparin Sodium (Porcine) (Heparin 5000 units/ml) 5,000 units EVERY 12 HOURS SUBQ 02/12/17 21:00 03/14/17 20:59 02/14/17 09:27 Morphine Sulfate (Morphine Sulfate) 2 mg Q4H PRN IVP Severe Pain (Pain Scale 7-10) 02/12/17 19:45 02/19/17 19:44 02/14/17 17:54 Nitroglycerin (Ntg) 0.4 mg Q5M X 3 DOSES PRN SL Prn Chest Pain 02/12/17 19:45 03/14/17 19:44 Ondansetron HCl (Zofran) 4 mg Q6H PRN IVP Nausea & Vomiting 02/12/17 20:00 03/14/17 19:59 02/13/17 06:41 Pantoprazole (Protonix) 40 mg DAILY IVP 02/13/17 11:00 03/15/17 10:59 02/14/17 09:21 Polyethylene Glycol (Miralax) 17 gm HSPRN PRN ORAL Constipation 02/12/17 21:00 03/14/17 20:59 Sennosides 8.6 mg 8.6 mg DAILY PRN ORAL Constipation 02/13/17 13:15 03/15/17 13:14 Sodium Chloride (Sodium Chloride 1000ml bag) 1,000 ml @ 75 mls/hr [id number] IV 02/14/17 14:00 03/16/17 13:59 02/14/17 14:00 Temazepam (Restoril) 15 mg HSPRN PRN ORAL Insomnia 02/12/17 21:00 02/19/17 20:59 Allergies: Coded Allergies: No Known Allergies (Unverified , 12/25/16) ROS Limited/Unobtainable: No Constitutional: Reports: no symptoms HEENT: Reports: no symptoms Cardiovascular: Reports: no symptoms Respiratory: Reports: no symptoms Gastrointestinal/Abdominal: Reports: abdominal pain Genitourinary: Reports: no symptoms Neurologic/Psychiatric: Reports: no symptoms Subjective 61 YO M admitted with abdominal pain; S/P ventral hernia repair on 02/13/17. Cover for Int [place]-Dr Kendall. Tolerating full liquid diet Objective Last Vital Signs Date Time Temp Pulse Resp B/P Pulse Ox O2 Delivery O2 Flow Rate FiO2 02/14/17 16:00 98.1 84 20 147/110 97 Room Air 02/14/17 11:51 2.0 28 General Appearance: WD/WN, alert, mild distress EENT: PERRL/EOMI, normal ENT inspection, TMs normal Neck: non-tender, normal alignment, supple Cardiovascular: normal peripheral pulses, normal rate, regular rhythm, no gallop/murmur, no JVD Respiratory/Chest: chest wall non-tender, lungs clear, normal breath sounds, no respiratory distress, no accessory muscle use Abdomen: no mass, decreased bowel sounds, distended, guarding, tender Extremities: normal range of motion Neurologic: loan operations specialist II-XII grossly normal, no motor/sensory deficits Laboratory Tests Test 02/14/17 11:20 White Blood Count 10.2 K/UL (4.8-10.8) Red Blood Count 4.88 M/UL (4.70-6.10) Hemoglobin 13.1 G/DL (14.2-18.0) L Hematocrit 40.4 % (42.0-52.0) L Mean Corpuscular Volume 83 FL (80-99) Mean Corpuscular Hemoglobin 26.7 PG (27.0-31.0) L Mean Corpuscular Hemoglobin Concent 32.3 G/DL (32.0-36.0) Red Cell Distribution Width 13.3 % (11.6-14.8) Platelet Count 596 K/UL (150-450) H Mean Platelet Volume 4.4 FL (6.5-10.1) L Neutrophils (%) (Auto) % (45.0-75.0) Lymphocytes (%) (Auto) % (20.0-45.0) Monocytes (%) (Auto) % (1.0-10.0) Eosinophils (%) (Auto) % (0.0-3.0) Basophils (%) (Auto) % (0.0-2.0) Differential Total Cells Counted 100 Neutrophils % (Manual) 90 % (45-75) H Lymphocytes % (Manual) 9 % (20-45) L Monocytes % (Manual) 1 % (1-10) Eosinophils % (Manual) 0 % (0-3) Basophils % (Manual) 0 % (0-2) Band Neutrophils 0 % (0-8) Platelet Estimate Increased H Platelet Morphology Normal Red Blood Cell Morphology Normal Sodium Level 130 mEQ/L (135-145) L Potassium Level 4.3 mEQ/L (3.4-4.9) Chloride Level 91 mEQ/L (98-107) L Carbon Dioxide Level 23 mEQ/L (20-30) Anion Gap 16 (5-15) H Blood Urea Nitrogen 9 mg/dL (7-23) Creatinine 0.9 mg/dL (0.7-1.2) Estimat Glomerular Filtration Rate > 60 mL/min (>60) Glucose Level 110 mg/dL (74-106) H Calcium Level 8.7 mg/dL (8.6-10.2) Intake and Output 02/13/17 02/14/17 19:00 07:00 Intake Total 1375 ml 1065 ml Output Total 450 ml 600 ml Balance 925 ml 465 ml Intake Oral 240 ml IV Total 1375 ml 825 ml Output Urine Total 450 ml 600 ml # Voids 2 Assessment/Plan Problem List: (1) Abdominal distention (2) HTN (hypertension) (3) Incarcerated hernia Assessment & Plan: S/P ventral hernia repair on 02/13/17. See surgery note. (4) IV drug abuse Status: progressing Assessment/Plan Advance diet as tolerated per surgery BRIDGER CARPIO Feb 14, 2017 18:10
[2017-02-14 20:00] VITALS: BP 141/95
[2017-02-15 00:03] VITALS: BP 144/102
[2017-02-15] MEDS: Morphine Sulfate 2mg/ml Inj IVP PRN (01:44)
[2017-02-15 04:00] VITALS: BP 153/95
[2017-02-15 08:00] VITALS: BP 150/95
[2017-02-15 09:02] LABS: BASOPHILS % (AUTO) 1.5 % (0.0-2.0); LYMPHOCYTES % (AUTO) 8.7 % (20.0-45.0); MEAN CORPUSCULAR HEMOGLOBIN 26.2 PG (27.0-31.0); MEAN CORPUSCULAR VOLUME 82 FL (80-99); MEAN PLATELET VOLUME 4.4 FL (6.5-10.1); MONOCYTES % (AUTO) 5.4 % (1.0-10.0); NEUTROPHILS % (AUTO) 84.4 % (45.0-75.0); PLATELET COUNT 590 K/UL (150-450); RED BLOOD COUNT 4.83 M/UL (4.70-6.10); RED CELL DISTRIBUTION WIDTH 13.1 % (11.6-14.8); WHITE BLOOD COUNT 8.1 K/UL (4.8-10.8)
[2017-02-15] MEDS: Pantoprazole Inj IVP SCH (09:02)
[2017-02-15] MEDS: Heparin 5000 units/ml inj SUBQ SCH ×2 (09:04→22:14)
[2017-02-15 09:37] LABS: ANION GAP 17 (5-15); CALCIUM 8.8 mg/dL (8.6-10.2); CARBON DIOXIDE 20 mEQ/L (20-30); CHLORIDE 95 mEQ/L (98-107); CREATININE 0.8 mg/dL (0.7-1.2); GLOMERULAR FILTRATION RATE > 60 mL/min (>60); HEMOLYSIS 5; POTASSIUM 4.2 mEQ/L (3.4-4.9); SODIUM 132 mEQ/L (135-145)
--- NOTE | 2017-02-15 11:15 | General Progress Note ---
Progress Note Progress Note Afebrile, eating well, no n/v, Abdominl wound clean, no infection OK for discharge from surgical stand point VIJAY PALACIO Feb 15, 2017 11:15
--- NOTE | 2017-02-15 11:38 | General Progress Note ---
Progress Note Progress Note Preceeding noted, swallow eval tomorrow. If OK, no feeding tube. If not, PEG Thursday. Will sign off. VIJAY PALACIO Feb 15, 2017 11:38
[2017-02-15 12:05] VITALS: BP 143/84
--- NOTE | 2017-02-15 13:51 | Pulmonology Progress Note ---
Assessment/Plan Assessment/Plan ASSESSMENT incarcerated ventral epigastric hernia s/p Repair of ventral epigastric hernia with mesh on 02/13 . IV drug abuse hx of HTN postoperative pain hyponatremia PLAN OF CARE s/p surgery 02/13 surgery follows started on FL diet and advance as per surgery IVF, Na up to 132, continue pain management DVT/GI prophylaxis monitor BP, optimize treatment as needed encourage ambulation IS at the bedside case discussed and evaluated by supervising physician Subjective Allergies: Coded Allergies: No Known Allergies (Unverified , 12/25/16) Subjective afebrile, no leukocytosis intermittent postop pain controlled with curent regimen Objective Last 24 Hour Vital Signs Date Time Temp Pulse Resp B/P Pulse Ox O2 Delivery O2 Flow Rate FiO2 02/15/17 12:05 98.5 79 20 143/84 95 Room Air 02/15/17 08:00 98.8 76 20 150/95 100 Nasal Cannula 2.0 02/15/17 04:00 98.2 87 19 153/95 98 Room Air 02/15/17 00:03 99.5 85 20 144/102 100 Room Air 02/14/17 20:00 98.2 97 20 141/95 98 Room Air 02/14/17 18:54 97 Nasal Cannula 2.0 28 02/14/17 18:54 Nasal Cannula 2.0 28 02/14/17 18:54 78 20 Nasal Cannula 2.0 28 02/14/17 18:24 98.1 02/14/17 16:00 98.1 84 20 147/110 97 Room Air Intake and Output 02/14/17 02/15/17 19:00 07:00 Intake Total 450 ml 2040 ml Output Total 700 ml 1125 ml Balance -250 ml 915 ml Intake Oral 240 ml IV Total 450 ml 1800 ml Output Urine Total 700 ml 1125 ml Objective General Appearance: no apparent distress, alert Lines, tubes and drains: peripheral HEENT: normocephalic, atraumatic Neck: non-tender, supple Respiratory/Chest: lungs clear, no respiratory distress, no accessory muscle use Cardiovascular/Chest: normal rate, regular rhythm, no JVD Abdomen: mild TTP around surgical incision, soft, steri strip upper midabdominal area, C/D/I Extremities: non-tender, no calf tenderness, normal capillary refill Skin Exam: warm/dry Neurologic: no motor/sensory deficits, alert, responsive Musculoskeletal: normal muscle bulk Laboratory Tests 02/15/17 08:50: White Blood Count 8.1, Red Blood Count 4.83, Hemoglobin 12.7L, Hematocrit 39.6L , Mean Corpuscular Volume 82, Mean Corpuscular Hemoglobin 26.2L, Mean Corpuscular Hemoglobin Concent 32.0, Red Cell Distribution Width 13.1, Platelet Count 590H, Mean Platelet Volume 4.4L, Neutrophils (%) (Auto) 84.4H, Lymphocytes (%) (Auto) 8.7L, Monocytes (%) (Auto) 5.4, Eosinophils (%) (Auto) 0.0, Basophils (%) (Auto) 1.5, Sodium Level 132L, Potassium Level 4.2, Chloride Level 95L, Carbon Dioxide Level 20, Anion Gap 17H, Blood Urea Nitrogen 13, Creatinine 0.8, Estimat Glomerular Filtration Rate > 60, Glucose Level 95, Calcium Level 8.8 Current Medications Medications (Trade) Dose Ordered Sig/Nancy Route PRN Reason Start Time Stop Time Status Last Admin Dose Admin Acetaminophen (Tylenol) 650 mg Q4H PRN ORAL T>100.5 02/12/17 19:45 03/14/17 19:44 Acetaminophen/ Hydrocodone Bitart ([place] 5/325) 1 tab Q4H PRN ORAL Moderate Pain (Pain Scale 4-6) 02/13/17 13:15 02/20/17 13:14 02/14/17 12:37 Al Hydroxide/Mg Hydroxide (Mylanta II) 30 ml Q6H PRN ORAL dyspepsia 02/12/17 20:00 03/14/17 19:59 Dextrose (Dextrose 50%) STAT PRN IV Hypoglycemia 02/12/17 19:45 03/14/17 19:44 Diphenhydramine HCl (Benadryl) 25 mg Q6H PRN ORAL Itching/Pruritis 02/12/17 20:00 03/14/17 19:59 Heparin Sodium (Porcine) (Heparin 5000 units/ml) 5,000 units EVERY 12 HOURS SUBQ 02/12/17 21:00 03/14/17 20:59 02/15/17 09:04 Morphine Sulfate (Morphine Sulfate) 2 mg Q4H PRN IVP Severe Pain (Pain Scale 7-10) 3/16/17 19:45 02/19/17 19:44 02/15/17 01:44 Nitroglycerin (Ntg) 0.4 mg Q5M X 3 DOSES PRN SL Prn Chest Pain 02/12/17 19:45 03/14/17 19:44 Ondansetron HCl (Zofran) 4 mg Q6H PRN IVP Nausea & Vomiting 02/12/17 20:00 03/14/17 19:59 02/13/17 06:41 Pantoprazole (Protonix) 40 mg DAILY IVP 02/13/17 11:00 03/15/17 10:59 02/15/17 09:02 Polyethylene Glycol (Miralax) 17 gm HSPRN PRN ORAL Constipation 02/12/17 21:00 03/14/17 20:59 Sennosides 8.6 mg 8.6 mg DAILY PRN ORAL Constipation 02/13/17 13:15 03/15/17 13:14 Sodium Chloride (Sodium Chloride 1000ml bag) 1,000 ml @ 75 mls/hr [id number] IV 02/14/17 14:00 03/16/17 13:59 02/15/17 03:37 Temazepam (Restoril) 15 mg HSPRN PRN ORAL Insomnia 02/12/17 21:00 02/19/17 20:59 [facility] Feb 15, 2017 13:51
[2017-02-15 16:13] VITALS: BP 141/99
--- NOTE | 2017-02-15 17:51 | Internal Med Progress Note ---
Subjective Date of Service: Feb 15, 2017 Physician Name Bridger Carpio Attending Physician Tristan Kendall MD Current Medications Medications (Trade) Dose Ordered Sig/Nancy Route PRN Reason Start Time Stop Time Status Last Admin Dose Admin Acetaminophen (Tylenol) 650 mg Q4H PRN ORAL T>100.5 02/12/17 19:45 03/14/17 19:44 Acetaminophen/ Hydrocodone Bitart ([place] 5/325) 1 tab Q4H PRN ORAL Moderate Pain (Pain Scale 4-6) 02/13/17 13:15 02/20/17 13:14 02/14/17 12:37 Al Hydroxide/Mg Hydroxide (Mylanta II) 30 ml Q6H PRN ORAL dyspepsia 02/12/17 20:00 03/14/17 19:59 Dextrose (Dextrose 50%) STAT PRN IV Hypoglycemia 02/12/17 19:45 03/14/17 19:44 Diphenhydramine HCl (Benadryl) 25 mg Q6H PRN ORAL Itching/Pruritis 02/12/17 20:00 03/14/17 19:59 Heparin Sodium (Porcine) (Heparin 5000 units/ml) 5,000 units EVERY 12 HOURS SUBQ 02/12/17 21:00 03/14/17 20:59 02/15/17 09:04 Morphine Sulfate (Morphine Sulfate) 2 mg Q4H PRN IVP Severe Pain (Pain Scale 7-10) 02/12/17 19:45 02/19/17 19:44 02/15/17 01:44 Nitroglycerin (Ntg) 0.4 mg Q5M X 3 DOSES PRN SL Prn Chest Pain 02/12/17 19:45 03/14/17 19:44 Ondansetron HCl (Zofran) 4 mg Q6H PRN IVP Nausea & Vomiting 02/12/17 20:00 03/14/17 19:59 02/13/17 06:41 Pantoprazole (Protonix) 40 mg DAILY IVP 02/13/17 11:00 03/15/17 10:59 02/15/17 09:02 Polyethylene Glycol (Miralax) 17 gm HSPRN PRN ORAL Constipation 02/12/17 21:00 03/14/17 20:59 Sennosides (Senokot) 8.6 mg DAILY PRN ORAL Constipation 02/13/17 13:15 03/15/17 13:14 Temazepam (Restoril) 15 mg HSPRN PRN ORAL Insomnia 02/12/17 21:00 02/19/17 20:59 Allergies: Coded Allergies: No Known Allergies (Unverified , 12/25/16) ROS Limited/Unobtainable: No Constitutional: Reports: no symptoms HEENT: Reports: no symptoms Cardiovascular: Reports: no symptoms Respiratory: Reports: no symptoms Gastrointestinal/Abdominal: Reports: abdominal pain Genitourinary: Reports: no symptoms Neurologic/Psychiatric: Reports: no symptoms Subjective 61 YO M admitted with abdominal pain; S/P ventral hernia repair on 02/13/17. Cover for Int [place]-Dr Kendall. Tolerating soft diet Objective Last Vital Signs Date Time Temp Pulse Resp B/P Pulse Ox O2 Delivery O2 Flow Rate FiO2 02/15/17 16:13 98.2 87 19 141/99 98 Room Air 02/15/17 08:00 2.0 02/14/17 18:54 28 Laboratory Tests Test 02/15/17 08:50 White Blood Count 8.1 K/UL (4.8-10.8) Red Blood Count 4.83 M/UL (4.70-6.10) Hemoglobin 12.7 G/DL (14.2-18.0) L Hematocrit 39.6 % (42.0-52.0) L Mean Corpuscular Volume 82 FL (80-99) Mean Corpuscular Hemoglobin 26.2 PG (27.0-31.0) L Mean Corpuscular Hemoglobin Concent 32.0 G/DL (32.0-36.0) Red Cell Distribution Width 13.1 % (11.6-14.8) Platelet Count 590 K/UL (150-450) H Mean Platelet Volume 4.4 FL (6.5-10.1) L Neutrophils (%) (Auto) 84.4 % (45.0-75.0) H Lymphocytes (%) (Auto) 8.7 % (20.0-45.0) L Monocytes (%) (Auto) 5.4 % (1.0-10.0) Eosinophils (%) (Auto) 0.0 % (0.0-3.0) Basophils (%) (Auto) 1.5 % (0.0-2.0) Sodium Level 132 mEQ/L (135-145) L Potassium Level 4.2 mEQ/L (3.4-4.9) Chloride Level 95 mEQ/L (98-107) L Carbon Dioxide Level 20 mEQ/L (20-30) Anion Gap 17 (5-15) H Blood Urea Nitrogen 13 mg/dL (7-23) Creatinine 0.8 mg/dL (0.7-1.2) Estimat Glomerular Filtration Rate > 60 mL/min (>60) Glucose Level 95 mg/dL (74-106) Calcium Level 8.8 mg/dL (8.6-10.2) Intake and Output 02/14/17 02/15/17 19:00 07:00 Intake Total 450 ml 2040 ml Output Total 700 ml 1125 ml Balance -250 ml 915 ml Intake Oral 240 ml IV Total 450 ml 1800 ml Output Urine Total 700 ml 1125 ml Objective General Appearance: WD/WN, alert, mild distress EENT: PERRL/EOMI, normal ENT inspection, TMs normal Neck: non-tender, normal alignment, supple Cardiovascular: normal peripheral pulses, normal rate, regular rhythm, no gallop/murmur, no JVD Respiratory/Chest: chest wall non-tender, lungs clear, normal breath sounds, no respiratory distress, no accessory muscle use Abdomen: no mass, decreased bowel sounds, distended, guarding, tender Extremities: normal range of motion Neurologic: turbo generator oiler II-XII grossly normal, no motor/sensory deficits Assessment/Plan Problem List: (1) Abdominal distention Assessment & Plan: Resolving. (2) HTN (hypertension) (3) Incarcerated hernia Assessment & Plan: S/P ventral hernia repair on 02/13/17. See surgery note. (4) IV drug abuse Assessment/Plan Advance diet to soft per surgery BRIDGER CARPIO Feb 15, 2017 17:51
[2017-02-15 20:00] VITALS: BP 139/81
[2017-02-15] MEDS: Norco 5mg/325mg tab ORAL PRN (22:13)
[2017-02-16] VITALS: BP 147/90
[2017-02-16 04:00] VITALS: BP 143/86
[2017-02-16 08:00] VITALS: BP 135/90
[2017-02-16] MEDS: Norco 5mg/325mg tab ORAL PRN (09:14)
[2017-02-16] MEDS: Heparin 5000 units/ml inj SUBQ SCH (09:21)
[2017-02-16] MEDS: Pantoprazole Inj IVP SCH (09:26)
[2017-02-16 10:13] LABS: BASOPHILS % (AUTO) 1.1 % (0.0-2.0); EOSINOPHILS % (AUTO) 0.3 % (0.0-3.0); LYMPHOCYTES % (AUTO) 12.6 % (20.0-45.0); MEAN CORPUSCULAR HEMOGLOBIN 26.6 PG (27.0-31.0); MEAN CORPUSCULAR HGB CONC 32.4 G/DL (32.0-36.0); MEAN CORPUSCULAR VOLUME 82 FL (80-99); MEAN PLATELET VOLUME 4.6 FL (6.5-10.1); MONOCYTES % (AUTO) 7.2 % (1.0-10.0); NEUTROPHILS % (AUTO) 78.8 % (45.0-75.0); PLATELET COUNT 609 K/UL (150-450); RED BLOOD COUNT 4.93 M/UL (4.70-6.10); RED CELL DISTRIBUTION WIDTH 13.2 % (11.6-14.8); WHITE BLOOD COUNT 6.1 K/UL (4.8-10.8)
--- NOTE | 2017-02-16 10:17 | Diagnostic Imaging Report ---
Indication: Abdominal pain Technique: Watts-scale and duplex images of the upper abdomen were obtained Comparison: There is a CT scan dated 02/12/2017 Findings: Exam is limited, due to scar and abdominal wall hernia limiting visualization of the left hepatic lobe, pancreas, and abdominal aorta Trace ascites fluid is seen within Morison's pouch. Gallbladder demonstrates sludge, and possible tiny stones. No gallbladder wall thickening or pericholecystic fluid. Common bile duct measures 6 mm in diameter. No intrahepatic biliary ductal dilatation. Liver demonstrates normal echogenicity, no focal abnormality. Note, however, the left hepatic lobe is poorly visualized as described above. Portal vein and hepatic veins are patent.. Pancreas is obscured by bowel gas. Spleen is unremarkable. Left kidney measures 9.9 cm in length. Right kidney measures 11.6 cm length. Both kidneys demonstrate normal echogenicity. There is no hydronephrosis. Right kidney demonstrates a 1.9 cm lower pole cyst. Abdominal aorta is obscured by bowel gas. Impression: Limited exam, as described, with nonvisualization of the abdominal aorta, pancreas, and portions of the left hepatic lobe Trace ascites Gallbladder sludge and possible tiny stones. Negative for dilated ducts Incidental finding of 1.9 cm right lower pole renal cyst
[2017-02-16 10:34] LABS: ANION GAP 14 (5-15); CALCIUM 8.4 mg/dL (8.6-10.2); CARBON DIOXIDE 21 mEQ/L (20-30); CHLORIDE 93 mEQ/L (98-107); CREATININE 0.8 mg/dL (0.7-1.2); GLOMERULAR FILTRATION RATE > 60 mL/min (>60); HEMOLYSIS 0; SODIUM 128 mEQ/L (135-145)
--- NOTE | 2017-02-16 11:02 | General Progress Note ---
Progress Note Progress Note Surgery: patient seen and examined at bedside. doing well. no pain. no nv/f/c. tolerating oral diet. ambulatory. wants to go home afebrile, HD stable, exam benign, wound c/d/i with ster-strips in place s/p ventral hernia repair with mesh; doing well. recovering -diet as tolerated -keep wound clean and dry. okay to shower -okay to d/c from surgical standpoint follow up with me in 1 week, Jagdish Sierra Feb 16, 2017 11:02
[2017-02-16 12:00] VITALS: BP 129/82
--- NOTE | 2017-02-17 09:03 | Discharge Summary ---
Discharge Summary Hospital Course Date of Admission Feb 12, 2017 at 17:20 Date of Discharge Feb 16, 2017 at 12:00 Admitting Diagnosis incacerated hernia HPI Shiv Morales is a 61 year old male who was admitted on Feb 12, 2017 at 17:20 for Incacerated Hernia Hospital Course dc summary # [id number] Discharge Discharge Disposition Patient signed AMA Discharge Diagnoses: David (Chelysnehal),Rae BEAN Feb 17, 2017 09:03
--- NOTE | 2017-02-17 11:43 | Cardiology Report ---
APPROVED REPORT EKG Measurement Heart [id number] Normal sinus rhythm Septal infarct, age undetermined Abnormal ECG
--- NOTE | 2017-02-18 02:19 | Discharge Summary 2 SIG ---
DATE OF ADMISSION: 02/12/2017 DATE OF DISCHARGE: 02/16/2017 REASON FOR ADMISSION: 61-year-old male came to emergency room complaining of abdominal pain for few days. He reported vomited few times, no diarrhea, passed gas. Initially reported chest pain; however, later changed to epigastric and mild abdominal pain. The patient is with a history of hypertension. Workup in the emergency room revealed possibly incarcerated ventral hernia. CT of the abdomen and pelvis was done, which revealed upper abdominal wall ventral hernia protruding into the anterior wall of the gastric antrum and a small amount of fluid. Evidence of prior cecal resection. Edema of the mesenteric fat and trace of intraperitoneal fluid. Dilated common bile duct without evidence of esophageal lesion, nonobstructive left renal calculus. Two different attempts were made of reducing hernia, but with the patient 's cough, the hernia cane back protruding to the abdominal wall. Soft on palpation. Chest x-ray was negative for any acute cardiopulmonary disease. EKG revealed normal sinus rhythm. Surgery consult requested. The patient was afebrile. No leukocytosis. The patient admitted as the inpatient. ADMITTING DIAGNOSES: 1. Incarcerated hernia. 2. Intravenous drug abuse/heroin abuse. 3. History of hypertension. HOSPITAL STAY: The patient was admitted to medical surgical floor. Kept NPO. Started on the IV fluids. General surgery consult requested. Surgery done on the same day. Pain management provided. DVT prophylaxis provided. The patient had undergone repair of a ventral epigastric hernia with mesh on 02/13/2017. The patient started on liquid diet, and advanced as per surgery. Incentive spirometer at the bedside. Blood pressure was monitored. Blood pressure was managed with the current regimen, and was stable. Ambulation was encouraged. Hyponatremia noted. Intravenous fluids discontinued. Surgeon seen the patient on 02/16/2017 and cleared patient for discharge. There was no pain. No nausea. No vomiting. He tolerated diet. Ambulated. Brother was on the bedside. Exam was benign. Vital signs stable. Wound clean, dry, and intact with Steri-Strips in place. He recommended diet as tolerated. Keep wound clean and dry. Surgeon cleared to shower . Surgeon cleared to discharge from surgical standpoint. Internal Medicine doctor was contacted by nursing for discharge orders; however , the patient did not want to wait for the discharge orders from primary medical doctor. Discussed with the surgeon prior and brother on the bedside. The patient wanted to go home. The patient signed against medical advice form and left with his brother in a private car. He will follow up with the surgeon in one week. FINAL DIAGNOSES: 1. Incarcerated ventral epigastric hernia. 2. Intravenous drug abuse/heroin abuse. 3. History of hypertension. 4. s/repair on ventral epigastric hernia with mesh, 02/13 5. Hyponatremia Tristan Kendall M.D. Rae Hernandez ([facility]) N.PEddie DR: MEGHAN JOB#: [id number] CC: [id number]
== END 2017-02-16 12:00 | disposition left against medical advice (07) | DRG 227 ==
LOC: EMR 16:55 → 4W 17:20 → EDBEDREQ 17:50 → 3E 02-14 14:46
PROC: 0WUF0JZ Supplement Abdominal Wall with Synthetic Substitute, Open Approach (ICD-10-PCS; principal; 2017-02-13 11:30)
DX: K43.6 Other and unspecified ventral hernia with obstruction, without gangrene (principal); E87.1 Hypo-osmolality and hyponatremia; I10 Essential (primary) hypertension; K21.9 Gastro-esophageal reflux disease without esophagitis; F11.20 Opioid dependence, uncomplicated; E86.0 Dehydration; F17.200 Nicotine dependence, unspecified, uncomplicated
CPT/HCPCS: 36415; 71010; 74177; 76700; 80048; 80053; 81003; 82150; 82550; 82553; 83605; 83690; 83880; 84484; 85007; 85025; 85610; 85730; 93005; 94003; 94150; 94664; 94760; J2180; J2250; J2405; J2765